=== PATIENT | female | born 1940 | race Caucasian/White ===

== ENCOUNTER 2016-06-22 18:59 | Inpatient (IN) | payer MEDICARE, BC, OTHER ==
[~2016-06-22] VITALS: Ht 157.5 cm; Wt 46.0 kg
[2016-06-22] MEDS: MORPHINE 2 MG/ML 1ML SYRINGE IV PRN ×4 (20:08→21:08)
[2016-06-22 21:22] LABS: BASO % 0.2 % (0.0-1.0); EOS % 0.4 % (0.0-3.0); LARGE UNSTAINED CELL # 0.1 K/mm3 (0.0-0.4); LARGE UNSTAINED CELL % 0.7 % (0.0-4.0); LYMPH # 1.3 K/mm3 (1.5-4.5); LYMPH % 13.6 % (24.0-44.0); MEAN CORPUSCULAR HEMOGLOBIN 28.6 pg (27.0-33.0); MEAN CORPUSCULAR HGB CONC 32.6 g/dl (32.0-36.5); MEAN CORPUSCULAR VOLUME 87.7 fl (80.0-96.0); MONO # 0.4 K/mm3 (0.0-0.8); MONO % 4.4 % (0.0-5.0); NEUTROPHILS # 7.7 K/mm3 (1.8-7.7); NEUTROPHILS % 80.7 % (36.0-66.0); PLATELET COUNT, AUTOMATED 240 k/mm3 (150-450); RED CELL DISTRIBUTION WIDTH 12.9 % (11.5-14.5); WHITE BLOOD COUNT 9.5 K/mm3 (4.0-10.0)
[2016-06-22 21:34] LABS: ANION GAP 9 MEQ/L (8-16); BLOOD UREA NITROGEN 14 MG/DL (7-18); CARBON DIOXIDE LEVEL 27 MEQ/L (21-32); CHLORIDE LEVEL 104 MEQ/L (98-107); CREATININE FOR GFR 0.63 MG/DL (0.55-1.02); GLOMERULAR FILTRATION RATE > 60.0 (>39); GLUCOSE, FASTING 113 MG/DL (83-110); POTASSIUM SERUM 3.6 MEQ/L (3.5-5.1); SODIUM LEVEL 140 MEQ/L (136-145)
[2016-06-22] MEDS ORDERED: CALCTAB7 PO (21:48)
[2016-06-22] MEDS ORDERED: FISH1000 PO (21:48)
[2016-06-22] MEDS ORDERED: VITMTA PO (21:48)
[2016-06-22] MEDS ORDERED: MORPHINE 2 MG/ML 1ML SYRINGE IV ONE (22:30)
[2016-06-22] MEDS ORDERED: BISACODYL 10 MG SUPP PR PRN (22:45)
[2016-06-22] MEDS ORDERED: ONDANSETRON 4MG/2ML VIAL (J2405) IV PRN (22:45)
[2016-06-22] MEDS ORDERED: D5W/0.9% SODIUM CHLORIDE 1,000 ML IV SCH (22:45)
[2016-06-23] VITALS (13 sets, daily range): BP systolic 121–156; BP diastolic 59–92
--- NOTE | 2016-06-23 | HPE ---
DATE OF ADMISSION: 06/22/2016 PRIMARY CARE PROVIDER: DARLENE Velazquez CHIEF COMPLAINT: Trip and fall with trauma to the left hip and left wrist. PAST MEDICAL HISTORY: Hyperlipidemia. HISTORY OF THE PRESENT ILLNESS: This is a 76-year-old female who was in her usual state of health, today in her house was going from kitchen to living room, there was a step in between which she forgot and tripped over and fell and injured her left hip and left wrist. The patient was brought to the emergency room. The patient was found to have a left hip fracture, so the patient is admitted to the hospitalist service for left hip fracture. PAST SURGICAL HISTORY: Left cataract surgery. Tonsillectomy. Left mastectomy in 1998 for breast cancer. ALLERGIES: No known allergies. SOCIAL HISTORY: Does not smoke. Does not abuse alcohol or recreational drugs. HOME MEDICATIONS: - calcium carbonate 600 mg by mouth daily - fish oil 1000 mg by mouth daily - multivitamins one tablet by mouth daily FAMILY HISTORY: Nothing significant. REVIEW OF SYSTEMS: All 10-point review of systems are negative except those mentioned in the history of the present illness. PHYSICAL EXAMINATION: Vital Signs: Temperature 98, pulse 84, respiratory rate 16, blood pressure 132/78, pulse oximetry 96% in room air. General: Patient awake, alert, oriented times three, laying in bed in no acute distress. HEENT: Normocephalic, atraumatic. Moist mucous membranes. Anicteric eyes. Chest: Clear to auscultation. Cardiovascular: S1, S2, regular. No rub, murmur or gallop. Abdomen: Soft, nontender. Bowel sounds present. Extremities: No edema. LABORATORY DATA: WBC 9.5, hemoglobin 13.5, platelets 240. Sodium 140, potassium 3.6, chloride 104, bicarbonate 27, BUN 14, creatinine 0.6, glucose 113, calcium 9. Cardiac enzymes are negative. Chest x-ray: No acute cardiopulmonary process. EKG: Sinus rhythm. ASSESSMENT AND PLAN: This is a 76-year-old female admitted for left hip fracture. Plan: Medical clearance. The patient has greater than 4 METS of physical capacity. EKGs and x-rays look okay. The patient is medically optimized for the proposed surgery. Left hip fracture. Dr. Whyte from orthopedics to see the patient. Will probably go to surgery within the next few hours. Pain control with morphine as needed. Will keep the patient nothing by mouth. Continue IV fluids for maintenance of hydration. Hyperlipidemia. The patient is on fish oil. Will continue that postoperatively. Deep vein thrombosis (DVT) prophylaxis has been ordered.
[2016-06-23] MEDS: MORPHINE 2 MG/ML 1ML SYRINGE IV PRN ×3 (03:55→08:16)
--- NOTE | 2016-06-23 04:30 | CR ---
DATE OF CONSULTATION: 06/22/2016 CHIEF COMPLAINT: Left hip fracture/pain. HISTORY: This is a 76-year-old female. She stumbled on a step and fell and injuring the left hip. The injury happened today. She complains of left hip pain and discomfort. Today incidentally is her birthday. Nursing summary is reviewed and remainder of chart. Patient has no medical issues. Does not take any medications on a daily basis. She is not allergic to medications. Does not smoke and has not been drinking. FAMILY HISTORY: She currently lives alone. She is surrounded by her family, however. REVIEW OF SYSTEMS: She is only complaining of left hip and extremity pain. CLINICAL EXAMINATION: Alert and cooperative. Mood and affect appropriate. Appears stated vintage of 76 or a bit younger. Healthy skin face, upper and lower extremities. Left lower extremity is warm and well-perfused with palpable dorsalis pedis pulses, regular about 80 beats per minute. No peripheral edema, soft calves. The extremity is shortened and internally rotated. Abdomen was soft and nontender. The patient is not short of breath. IMAGING: Comminuted intertrochanteric fracture of the left hip. IMPRESSION: Left hip intertrochanteric fracture. RECOMMENDATIONS: I talked to the patient about treatment options for this fracture. I would suggest metal fixation with hardware and to use a screw implant or nail. We completed a short-form history and physical (H and P), as well as consent document, which involved a lisa discussion of the procedure proposed, alternatives including doing nothing and risks including, but not limited to pain, infection, bleeding, blood loss, need for more surgery, blood clots and other issues. She agreed to proceed. I coordinated with the hospitalist, as well as the operating room (OR) scheduling. She is pending medical optimization, so we will plan on putting her on the OR schedule for tomorrow, 06/23/2016. The patient and family is comfortable with that plan. For further details, please refer to the medical record.
[2016-06-23] MEDS ORDERED: PERCOCET 5MG/325MG TAB PO PRN ×2 (07:00→07:15)
[2016-06-23] MEDS ORDERED: PROMETHAZINE INJ 25 MG/ML VIAL (J2550) IV PRN (07:15)
[2016-06-23] MEDS: SENOKOT S TAB PO SCH ×2 (08:11→20:12)
--- NOTE | 2016-06-23 08:41 | REP ---
Supine AP chest: 06/22/2016. Clinical history: Trauma. Comparison: 04/01/2007. Findings: The lung nowak are adequately inflated. There is no effusion or dense consolidation. There is apical pleural scarring, right greater than left. Prior mastectomy. Axillary clips on the left, stable. There is no parenchymal mass. Some minor linear fibrotic changes are seen. There is no cardiomegaly or gross edema. The aorta is mildly tortuous but normal for age. The bony thorax shows mild dextrorotatory curvature of the upper thoracic region. Impression: 1. No cardiomegaly, edema, definite effusion or dense consolidation. There was no widened mediastinum or other acute finding. 2. Prior mastectomy and left axillary lymph node dissection. Signed by Darren Nelson MD 06/23/2016 08:32 A
--- NOTE | 2016-06-23 08:52 | REP ---
LEFT WRIST COMPLETE: 06/22/2016. Clinical history: Trauma. Four views are provided. The bones are severely demineralized. There is advanced degenerative changes at the first CMC joint and other carpal articulations lesser degenerative changes. There is a subtle cortical step off on one of the oblique views at the distal radial metaphysis. This suggests a subtly impacted fracture on that view. I cannot confirm it on the other views however. There is soft tissue swelling dorsal aspect of the wrist and distal forearm. There is a dorsal tilt to the lunate and some cysts in the proximal capitate. No other significant finding. Impression: 1. Findings suggest a subtle impaction fracture of the distal radius may be present. Soft tissue swelling of the dorsal aspect of the wrist and distal forearm along with a dorsal tilt of the lunate suggesting a dorsal intercalated segment instability. 2. Osteoporosis and degenerative changes as described. Signed by Darren Nelson MD 06/23/2016 08:17 P
--- NOTE | 2016-06-23 08:53 | REP ---
AP PELVIS AND LEFT HIP: 06/22/2016. No prior study. AP pelvis shows pelvic ring intact. Pubic rami, symphysis pubis and acetabula intact. The right hip was unremarkable. SI joints, sacral ala and foramina intact. Degenerative facet changes lower lumbar spine. Left hip. There is an intertrochanteric fracture of the hip with slight varus deformity. There is no fracture of the femoral head or subtrochanteric femur. There are no other findings. Impression: 1. Intertrochanteric fracture of the left hip with only a two-part fracture and mild varus deformity. No other finding. Signed by Darren Nelson MD 06/23/2016 08:17 P
[2016-06-23] MEDS ORDERED: ceFAZolin 1GM INJ (J0690) As Ordered ONE (09:57)
[2016-06-23] MEDS ORDERED: BUPIVACAINE/EPIN 0.25% 30 ML VIAL As Ordered ONE (09:57)
[2016-06-23] MEDS ORDERED: PROPOFOL 200 MG/20 ML VIAL As Ordered ONE ×2 (10:23→11:23)
[2016-06-23] MEDS ORDERED: LIDOCAINE 2% INJ 100 MG/5 ML SDV (FOR ANES.) As Ordered ONE (10:23)
[2016-06-23] MEDS ORDERED: ROCURONIUM BROMIDE 50 MG/5 ML VIAL As Ordered ONE (10:23)
[2016-06-23] MEDS ORDERED: fentaNYL 100 MCG/2 ML INJECTION (J3010) As Ordered ONE ×3 (10:57→12:47)
[2016-06-23] MEDS ORDERED: GLYCOPYRROLATE INJ 0.2 MG/ML 2 ML VIAL As Ordered ONE (11:22)
[2016-06-23] MEDS ORDERED: NEOSTIGMINE 1MG/ML 5 ML SYRINGE (J2710) As Ordered ONE (11:22)
[2016-06-23] MEDS ORDERED: ONDANSETRON 4MG/2ML VIAL (J2405) As Ordered ONE ×2 (11:22→12:11)
[2016-06-23] MEDS ORDERED: fentaNYL 100 MCG/2 ML INJECTION (J3010) IV PRN (12:30)
[2016-06-23] MEDS ORDERED: ONDANSETRON 4MG/2ML VIAL (J2405) IV PRN (12:30)
[2016-06-23] MEDS ORDERED: METOCLOPRAMIDE INJ 10MG/2ML VIAL (J2765) As Ordered ONE (12:30)
[2016-06-23] MEDS: D5W/LR 1,000 ML IV SCH (12:30)
[2016-06-23] MEDS ORDERED: MORPHINE 2 MG/ML 1ML SYRINGE IV PRN (12:30)
[2016-06-23] MEDS ORDERED: LR 1,000 ML IV SCH (12:30)
[2016-06-23] MEDS ORDERED: METOCLOPRAMIDE INJ 10MG/2ML VIAL (J2765) IV PRN (12:45)
--- NOTE | 2016-06-23 13:58 | IPNPDOC ---
Subjective Date Seen The patient was seen on 06/23/16. Subjective Chief Complaint/HPI The patient is a 76-year-old female admitted with a reason for visit of Closed L Hip Fx. General: Denies: Chills, Night Sweats Constitutional: Denies: Chills, Fever Eyes: Denies: Pain, Vision change ENT: Denies: Ear Pain, Head Aches Skin: Denies: Lesions, Rash Pulmonary: Denies: Cough, Dyspnea Cardiovascular: Denies: Chest Pain, Palpitations Gastrointestinal: Denies: Nausea, Vomiting Genitourinary: Denies: Dysuria, Frequency Hematologic: Denies: Bleeding Excessively, Bruising Musculoskeletal: Reports: Leg Pain (Left Hip s/p Fracture) Objective Physical Examination General Exam: Positive: Alert, Cooperative, No Acute Distress ENT Exam: Positive: Atraumatic, Mucous membr. moist/pink Neck Exam: Negative: JVD Chest Exam: Positive: Clear to auscultation, Normal air movement Heart Exam: Positive: Normal S1, Normal S2, Rate Normal Abdomen Exam: Positive: Soft, Negative: Tenderness Extremity Exam: Positive: Other (Left Hip noted to be in surgical dressing s/p fixation. Limited ROM, no superficial drainage noted through dressing. Neurovascularly intact distally.) Assessment /Plan Plan/VTE VTE Prophylaxis Ordered?: Yes Plan Left Hip Intertrochanteric Fracture s/p Fixation Patient's pain relatively well controlled at this time Pain mgmt and DVT prophylaxis as per Ortho Nondisplaced Fracture of the Distal Radius of LUE Splint Placement as per Ortho DVT prophylaxis--On Coumadin as per Ortho VS, I&O, 24H, [facility] Vital Signs/I&O Vital Signs Date Time Temp Pulse Resp B/P Pulse Ox O2 Delivery O2 Flow Rate FiO2 06/23/16 13:00 98.8 74 18 116/59 99 Nasal Cannula 2 I&O- Last 24 Hours up to 6 AM 06/23/16 06:00 Intake Total 0 ml Output Total 0 ml Balance 0 ml Laboratory Data 24H LABS Laboratory Tests 2 06/22/16 20:06: Anion Gap 9, White Blood Count 9.5, Red Blood Count 4.71, Hemoglobin 13.5, Hematocrit 41.3, Mean Corpuscular Volume 87.7, Mean Corpuscular Hemoglobin 28.6 , Mean Corpuscular Hemoglobin Concent 32.6, Red Cell Distribution Width 12.9, Platelet Count 240, Neutrophils (%) (Auto) 80.7H, Lymphocytes (%) (Auto) 13.6L, Monocytes (%) (Auto) 4.4, Eosinophils (%) (Auto) 0.4, Basophils (%) (Auto) 0.2, Neutrophils # (Auto) 7.7, Lymphocytes # (Auto) 1.3L, Monocytes # (Auto) 0.4, Eosinophils # (Auto) 0.0, Basophils # (Auto) 0.0, Blood Urea Nitrogen 14, Creatinine 0.63, Sodium Level 140, Potassium Level 3.6, Chloride Level 104, Carbon Dioxide Level 27, Calcium Level 9.0, Total Creatine Kinase 138, Creatine Kinase MB 1.1, Creatine Kinase MB Relative Index 0.79, Glomerular Filtration Rate > 60.0, Large Unclassified Cells # 0.1, Large Unclassified Cells % 0.7, Troponin I < 0.02 CBC/BMP Laboratory Tests 06/22/16 20:06 Calcium Level 9.0, Total Creatine Kinase 138, Red Blood Count 4.71, Mean Corpuscular Volume 87.7, Mean Corpuscular Hemoglobin 28.6, Mean Corpuscular Hemoglobin Concent 32.6, Red Cell Distribution Width 12.9, Neutrophils (%) (Auto ) 80.7 H, Lymphocytes (%) (Auto) 13.6 L, Monocytes (%) (Auto) 4.4, Eosinophils ( %) (Auto) 0.4, Basophils (%) (Auto) 0.2, Neutrophils # (Auto) 7.7, Lymphocytes # (Auto) 1.3 L, Monocytes # (Auto) 0.4, Eosinophils # (Auto) 0.0, Basophils # ( Auto) 0.0 STELLA HUMPHREYS MD Jun 23, 2016 13:58
--- NOTE | 2016-06-23 14:26 | REP ---
LEFT HIP IN OPERATING ROOM: 06/23/2016. Clinical history: Intertrochanteric fracture ORIF. Four images from C-arm fluoroscopy provided to Dr. Whyte of the orthopedic division showed skin lisbeth and intramedullary sebas and a blade paddle device for ORIF intertrochanteric fracture of the left hip. A near anatomic alignment is achieved. The femoral blade paddle does not extend beyond the articular surface of the femoral head. Fluoroscopy time: 1 minute. Signed by Darren Nelson MD 06/23/2016 08:28 P
--- NOTE | 2016-06-23 15:41 | IPN ---
DATE OF SERVICE: 06/23/2016 SUBJECTIVE: I saw the patient prior to bringing her back to the operating room and talked to her again about surgical procedure and also her daughter. Also at this point, I had reviewed distal radius fracture/wrist images and I suspected a nondisplaced fracture of the distal radius on the left side. I examined her left upper extremity at the bedside and she seems to have developed some mild ecchymosis and swelling over the dorsal distal radius and hand, consistent with a nondisplaced fracture. Clinically there is no displacement. Fingers are warm and well-perfused, as well as sensate. IMPRESSION Nondisplaced fracture distal radius left upper extremity. She also has a hip fracture we are treating operatively RECOMMENDATIONS: I recommend treatment of the distal radius fracture with a splint. This was explained to the patient and her daughter who are comfortable with that plan and remain comfortable with the plan for fixing the hip operatively.
[2016-06-23] MEDS ORDERED: NALOXONE INJ 0.4 MG/1 ML VIAL (J2310) As Ordered ONE (15:45)
[2016-06-23] MEDS ORDERED: NALOXONE INJ 0.4 MG/1 ML VIAL (J2310) IV STA ×2 (15:47→17:04)
--- NOTE | 2016-06-23 16:11 | IPN ---
DATE: 06/23/2016 TIME: 3:54 p.m. SUBJECTIVE: Rapid assessment team was called due to patient being found unresponsive after two tablets of Percocet and one dose of intravenous (IV) Phenergan. The patient's glucose level was 156. She was not awakening with sternal rub. Pupils were equally round and reactive. After a dose of IV Narcan, the patient awoke, was able to state her name, where she was, and stated that she was in 8/10 pain on a pain scale. OBJECTIVE: VITAL SIGNS: Temperature 97.8, pulse 109 sinus, respiratory rate 25, blood pressure 156/73, 99% on two liters nasal cannula. GENERAL: Currently awake and alert. Answering questions appropriately after IV Narcan was given. HEENT: Pupils are round and reactive. Patient is able to follow commands, speaks in full sentences. No slurring of speech. No respiratory distress. LUNGS: Clear to auscultation. No wheezes, rales, or rhonchi. HEART: S1, S2. Sinus rhythm. ABDOMEN: Soft, nontender, nondistended. EXTREMITIES: Left hip with surgical dressings, status post fixation. No pitting edema. LABORATORY DATA: White count 9.5, hemoglobin 13, hematocrit 41, platelet count 240. Sodium 140, potassium 3.6, chloride 104, bicarbonate 27, BUN 14, creatinine 0.63, glucose of 113. Troponin less than 0.02. ASSESSMENT AND PLAN: A 76-year-old female with a mechanical fall, sustaining a left hip fracture and left wrist pain, history of tonsillectomy, left mastectomy due to breast cancer in 1998, left cataract surgery, developed altered mental status with unresponsiveness after being given two tablets of Percocet and one dose of intravenous Phenergan. The patient was reversed effectively with intravenous Narcan. morphine and Percocet were discontinued. Arterial blood gas is pending. The patient is clinically improved. IMPRESSION: Opioid-induced sedation, altered mental status. Glucose level is normal. Arterial blood gas is pending, but clinically improved with IV Narcan. The patient's Percocet and morphine were discontinued. Orthopedic surgery, Ely Russo, has been made aware of the rapid assessment and will adjust medications accordingly. Avoid further sedatives and narcotics. Vital signs are stable. No changes in her medication aside from discontinuation of opioids. Dr. Otilio Campbell is aware of the patient's rapid assessment team incident.
[2016-06-23 16:18] LABS: ABG BASE EXCESS 0.4 (-2.0-2.0); ABG PARTIAL PRESSURE CO2 40.2 mmHg (35.0-45.0); ABG PARTIAL PRESSURE O2 119.9 mmHg (75.0-100.0); ABG STANDARD HCO3 24.8 MEQ/L (22.0-26.0); ABG TOTAL CO2 26.2 MEQ/L (23.0-31.0); ABG pH (ARTERIAL) 7.411 UNITS (7.350-7.450)
[2016-06-23] MEDS ORDERED: WARFARIN SOD 2.5 MG TAB PO SCH (17:00)
[2016-06-23] MEDS ORDERED: NALOXONE INJ 0.4 MG/1 ML VIAL (J2310) IV PRN (17:15)
[2016-06-23] MEDS: ACETAMINOPHEN TAB 650MG DOSE (2X325MG) PO PRN (22:39)
[2016-06-24] VITALS: BP 108/61
[2016-06-24] MEDS: D5W/LR 1,000 ML IV SCH (00:47)
[2016-06-24 04:00] VITALS: BP 132/65
[2016-06-24] MEDS: ACETAMINOPHEN TAB 650MG DOSE (2X325MG) PO PRN ×3 (04:03→22:37)
[2016-06-24 05:59] LABS: MEAN CORPUSCULAR HEMOGLOBIN 28.7 pg (27.0-33.0); MEAN CORPUSCULAR HGB CONC 32.4 g/dl (32.0-36.5); MEAN CORPUSCULAR VOLUME 88.6 fl (80.0-96.0)
[2016-06-24 06:10] LABS: ANION GAP 4 MEQ/L (8-16); BLOOD UREA NITROGEN 6 MG/DL (7-18); CARBON DIOXIDE LEVEL 30 MEQ/L (21-32); CHLORIDE LEVEL 108 MEQ/L (98-107); CREATININE FOR GFR 0.49 MG/DL (0.55-1.02); GLOMERULAR FILTRATION RATE > 60.0 (>39); GLUCOSE, FASTING 99 MG/DL (83-110); POTASSIUM SERUM 3.6 MEQ/L (3.5-5.1); SODIUM LEVEL 142 MEQ/L (136-145)
[2016-06-24 07:15] VITALS: BP 120/58
--- NOTE | 2016-06-24 07:18 | RO ---
DATE OF PROCEDURE: date dictated PREOPERATIVE DIAGNOSES: 1. Left hip intertrochanteric fracture. 2. Nondisplaced traumatic distal radius fracture, left. POSTOPERATIVE DIAGNOSIS: 1. Left hip intertrochanteric fracture. 2. Nondisplaced traumatic distal radius fracture, left. PROCEDURE PERFORMED: Treatment of left hip intertrochanteric fracture with intramedullary type implant. Application of volar splint left upper extremity with distal radius fracture SURGEON: Abner Whyte MD [employer]ICIAN: ANESTHESIA: General. Estimated blood loss was less than 50 mL, replaced with crystalloid. No complications. Components used include the [employer] titanium trochanteric fixation nail system (TFN) nailing system and then a 5 mm blade, intermediate nail, 42 mm locking screw distal. INDICATIONS: Diya laureano, fractured her hip on the left side. Elected for operative intervention. She also has a nondisplaced fracture of the left distal radius looking for splinting. We had a discussion of the pathology involved, the procedures proposed, alternatives including doing nothing, risks including but not limited to pain, failure, , need for more surgery and other issues. The patient agrees to proceed. DESCRIPTION OF PROCEDURE: Identified in holding area, site side verified. Once anesthesia was administered, she was positioned on the fracture table for exposure of the left hip. Once she was sterilely prepped and draped in usual fashion, we began the surgery. We utilized fluoroscopy. The incision was outlined with a marking pen over the left hip. It was infiltrated with 0.25% Marcaine with epinephrine, made with a 10 blade knife, developed down through skin and subcuticular tissues to the abductor mechanism. I palpated the greater trochanter and then I advanced the guidewire in the guidewire side to the greater trochanter. Next, the guidewire was advanced under power into the femoral canals. Position was verified on AP and lateral. Next, I overdrilled the guidewire with step drill. I exchanged the guidewire for the long guidewire and I placed the intramedullary portion of the implant into place. Next, I then assembled the guide arm for the nail, made a lateral incision for the cephalic portion of the nail and advanced the guide to the lateral aspect of the femur. Advanced the guidewire using power into the femoral head. Verified its position and adjusted on AP and lateral films. Measured for a 95 mm blade, which was elected, overdrilled. Then, we tamped the blade into place, adjusted position fluoroscopically. Blade blocked in a dynamic positioned. Distal locking screw was placed using the guide. 42 mm distal x 5 mm distal locking screw utilized. Wounds were irrigated, closed with interrupted stitch and lisbeth. Sterile dressings were applied. Final fluoroscopic images were taken. The patient was moved the hospital bed, moved to recovery in good condition. For further details, please refer to medical record. [facility]
[2016-06-24] MEDS ORDERED: traMADol 50 MG TAB PO PRN (07:45)
--- NOTE | 2016-06-24 08:04 | REP ---
AP PORTABLE CHEST: 06/23/2016. Comparison: 06/22/2016 portable chest, two-view chest 04/01/2007. Clinical history: Decreased mental status. Findings: The lung nowak are over penetrated. They maintain adequate level of inflation. There is some minor subsegmental atelectasis or fibrotic change retrocardiac left lower lobe. No effusion, lateral pleural thickening or definite infiltrate. Apical pleural scarring, right greater than left is again seen. Prior mastectomy on the left with axillary surgical clips noted. Bones are demineralized. Dextroconvex curve in the spine. No free air under the diaphragm. Slight tortuosity of the aorta without aneurysm. No cardiomegaly or edema. Impression: 1. Some underlying COPD and mild fibrotic change without cardiomegaly, edema or effusion. 2. Apical pleuroparenchymal scarring. Some minor linear fibrotic change or atelectasis infrahilar region on the left. 3. Prior left mastectomy and axillary lymph node dissection as before with osteoporosis. Stable exam. Signed by Darren Nelson MD 06/24/2016 08:37 A
--- NOTE | 2016-06-24 08:58 | RO ---
DATE OF PROCEDURE: 06/23/2016 PREOPERATIVE DIAGNOSIS: Left upper extremity distal radius fracture. POSTPROCEDURE DIAGNOSIS: Left upper extremity distal radius fracture. PROCEDURE PERFORMED: Application of volar splint/treatment of distal radius fracture left upper extremity not requiring manipulation with a volar splint. SURGEON: Abner Whyte MD ANESTHESIA: Dr. De Anda ESTIMATED BLOOD LOSS: None. COMPLICATIONS: None. INDICATIONS: Nondisplaced fracture of distal radius traumatic after a fall. DESCRIPTION OF PROCEDURE: The left upper extremity was identified. I padded using cotton padding. I placed a volar splint, thicknesses of plaster. It was secured with an Devon wrap. The patient tolerated well and went to the recovery room in good condition. Incidentally, we had already pinned her hip.
[2016-06-24] MEDS: MIRALAX *UNIT DOSE* 17GM PACKET PO SCH (09:00)
[2016-06-24] MEDS ORDERED: INFLUENZA VIRUS VACCINE HIGH DOSE 0.5 ML SYRINGE (90662) IM SCH (09:00)
--- NOTE | 2016-06-24 09:11 | REP ---
AP LATERAL LEFT HIP: 06/24/2016. Comparison: Intraoperative C-arm images left hip for ORIF, 06/23/2016. Clinical history: Postoperative ORIF left hip. Intertrochanteric fracture. Findings. ORIF with near anatomic realignment of the intertrochanteric fracture left hip. Blade paddle component of the repair extends into the femoral head but does not extend beyond its articular cortex. A single screw transfixes the long stem intramedullary sebas type femoral component. No other finding. Signed by Darren Nelson MD 06/24/2016 10:50 A
[2016-06-24] MEDS: SENOKOT S TAB PO SCH ×2 (09:46→20:18)
[2016-06-24] MEDS: MOM 30ML SUSPENSION UDC PO SCH (09:46)
[2016-06-24 10:18] LABS: INR 1.15
--- NOTE | 2016-06-24 11:55 | IPNPDOC ---
Subjective Date Seen The patient was seen on 06/24/16. Subjective Chief Complaint/HPI The patient is a 76-year-old female admitted with a reason for visit of Closed L Hip Fx. General: Denies: Chills, Night Sweats Constitutional: Denies: Chills, Fever Eyes: Denies: Pain, Vision change ENT: Denies: Ear Pain, Head Aches Skin: Denies: Lesions, Rash Pulmonary: Denies: Cough, Dyspnea Cardiovascular: Denies: Chest Pain, Palpitations Gastrointestinal: Denies: Nausea, Vomiting Genitourinary: Denies: Dysuria, Frequency Hematologic: Denies: Bleeding Excessively, Bruising Objective Physical Examination General Exam: Positive: Alert, Cooperative, No Acute Distress ENT Exam: Positive: Atraumatic, Mucous membr. moist/pink Neck Exam: Negative: JVD Chest Exam: Positive: Clear to auscultation, Normal air movement Heart Exam: Positive: Normal S1, Normal S2, Rate Normal Abdomen Exam: Positive: Soft, Negative: Tenderness Extremity Exam: Positive: Other (Left Hip noted to be in surgical dressing s/p fixation. Limited ROM, no superficial drainage noted through dressing. LUE noted to be in Splint. Neurovascularly intact distally.) Assessment /Plan Plan/VTE VTE Prophylaxis Ordered?: Yes Plan Episode of Unresponsiveness 2/2 Narcotic Pain Medication on 06/23 s/p Narcan 0.4 mg x 2 Follow up ABG wnl Patient's mentation has returned back to baseline Will withhold narcotics Tramadol prn Further pain medication control as per Ortho Left Hip Intertrochanteric Fracture s/p Fixation Patient's pain relatively well controlled at this time Pain mgmt and DVT prophylaxis as per Ortho Nondisplaced Fracture of the Distal Radius of LUE Splint Placement as per Ortho DVT prophylaxis--On Coumad[facility] as per [facility] VS, [facility] V[facility] Signs/I&O Vital Signs Date Time Temp Pulse Resp B/P Pulse Ox O2 Delivery O2 Flow Rate FiO2 06/24/16 08:27 18 06/24/16 07:15 97.6 96 120/58 100 Nasal Cannula 2.0 I&O- Last 24 Hours up to 6 AM 06/24/16 06:00 Intake Total 1820 ml Output Total 1775 ml Balance 45 ml Laboratory Data 24H LABS Laboratory Tests 2 06/23/16 15:49: Bedside Glucose (Misc Panel) 153H 06/23/16 16:06: Arterial Blood pH 7.411, Arterial Blood Partial Pressure CO2 40.2, Arterial Blood Partial Pressure O2 119.9H, Arterial Blood Total CO2 26.2, Arterial Blood HCO3 25.0, Arterial Blood Base Excess 0.4, Arterial Blood Oxygen Saturation 98.8 , Blood Gas Bicarbonate Standard 24.8 06/24/16 05:03: Anion Gap 4L, Blood Urea Nitrogen 6#L, Creatinine 0.49L, Sodium Level 142, Potassium Level 3.6, Chloride Level 108H, Carbon Dioxide Level 30, Calcium Level 8.0L, Glomerular Filtration Rate > 60.0 06/24/16 09:46: Prothromb Time International Ratio 1.15, Prothrombin Time 14.8H CBC/BMP Laboratory Tests 06/24/16 05:03 Calcium Level 8.0 L, Red Blood Count 3.68 L, Mean Corpuscular Volume 88.6, Mean Corpuscular Hemoglobin 28.7, Mean Corpuscular Hemoglobin Concent 32.4, Red Cell Distribution Width 13.0 STELLA HUMPHREYS MD Jun 24, 2016 11:55
[2016-06-24 13:35] VITALS: BP 128/67
[2016-06-24] MEDS: traMADol 50 MG TAB PO PRN ×2 (15:00→22:37)
[2016-06-24] MEDS ORDERED: WARFARIN SOD 3 MG TAB PO ONE (17:00)
--- NOTE | 2016-06-24 20:40 | ECGEPIP ---
Stationary ECG Study [facility] - ED Test Date: 2016-06-22 Pat Name: JOSE ALEJANDRO PHAN Department: Room: [place] [address] Gender: F Relay Technician: phylicia : [id number] Requested By: JOHNATHAN Crawford Order Number: [id number] Reading MD: Stephany Fermin Measurements Intervals [place] Rate: 80 P: 71 CA: 128 QRS: 69 QRSD: 101 T: 68 QT: 394 QTc: 456 Interpretive Statements SINUS RHYTHM MODERATE ST DEPRESSION NO PRIOR FOR COMPARISON Electronically Signed On 06-24-2016 20:40:09 EDT by Stephany Fermin
[2016-06-25 02:00] VITALS: BP 127/64
[2016-06-25 06:00] VITALS: BP 121/58
[2016-06-25] MEDS: traMADol 50 MG TAB PO PRN ×2 (06:24→10:48)
[2016-06-25] MEDS: ACETAMINOPHEN TAB 650MG DOSE (2X325MG) PO PRN ×2 (06:24→10:48)
[2016-06-25 06:54] LABS: MEAN CORPUSCULAR HEMOGLOBIN 28.9 pg (27.0-33.0); MEAN CORPUSCULAR HGB CONC 33.1 g/dl (32.0-36.5); MEAN CORPUSCULAR VOLUME 87.4 fl (80.0-96.0); RED CELL DISTRIBUTION WIDTH 12.9 % (11.5-14.5); WHITE BLOOD COUNT 6.5 K/mm3 (4.0-10.0)
[2016-06-25 06:58] LABS: INR 1.03
[2016-06-25 07:03] LABS: ANION GAP 7 MEQ/L (8-16); BLOOD UREA NITROGEN 7 MG/DL (7-18); CALCIUM LEVEL 8.4 MG/DL (8.8-10.2); CARBON DIOXIDE LEVEL 29 MEQ/L (21-32); CHLORIDE LEVEL 104 MEQ/L (98-107); CREATININE FOR GFR 0.45 MG/DL (0.55-1.02); GLOMERULAR FILTRATION RATE > 60.0 (>39); GLUCOSE, FASTING 94 MG/DL (83-110); POTASSIUM SERUM 3.7 MEQ/L (3.5-5.1); SODIUM LEVEL 140 MEQ/L (136-145)
[2016-06-25] MEDS: MIRALAX *UNIT DOSE* 17GM PACKET PO SCH (10:46)
[2016-06-25] MEDS: MOM 30ML SUSPENSION UDC PO SCH (10:46)
[2016-06-25] MEDS: SENOKOT S TAB PO SCH (10:46)
--- NOTE | 2016-06-25 10:54 | IPNPDOC ---
Subjective Date Seen The patient was seen on 06/25/16. Subjective Chief Complaint/HPI The patient is a 76-year-old female admitted with a reason for visit of Closed L Hip Fx. General: Denies: Chills, Night Sweats Constitutional: Denies: Chills, Fever Eyes: Denies: Pain, Vision change ENT: Denies: Ear Pain, Head Aches Skin: Denies: Lesions, Rash Pulmonary: Denies: Cough, Dyspnea Cardiovascular: Denies: Chest Pain, Palpitations Gastrointestinal: Denies: Nausea, Vomiting Genitourinary: Denies: Dysuria, Frequency Hematologic: Denies: Bleeding Excessively, Bruising Objective Physical Examination General Exam: Positive: Alert, Cooperative, No Acute Distress ENT Exam: Positive: Atraumatic, Mucous membr. moist/pink Neck Exam: Negative: JVD Chest Exam: Positive: Clear to auscultation, Normal air movement Heart Exam: Positive: Normal S1, Normal S2, Rate Normal Abdomen Exam: Positive: Soft, Negative: Tenderness Extremity Exam: Positive: Other (Left Hip noted to be in surgical dressing s/p fixation. Limited ROM, no superficial drainage noted through dressing. LUE noted to be in Splint. Neurovascularly intact distally.) Assessment /Plan Plan/VTE VTE Prophylaxis Ordered?: Yes Plan Episode of Unresponsiveness 2/2 Narcotic Pain Medication on 06/23 s/p Narcan 0.4 mg x 2 Follow up ABG wnl Patient's mentation has returned back to baseline Will withhold narcotics Tramadol q6h prn Further pain medication control as per Ortho Left Hip Intertrochanteric Fracture s/p Fixation Patient's pain relatively well controlled at this time Pain mgmt and DVT prophylaxis as per Ortho Nondisplaced Fracture of the Distal Radius of LUE Splint Placement as per Ortho DVT prophylaxis--On Coumadin as per Ortho VS, I&O, [facility] Vital Signs/I&O Vital Signs Date Time Temp Pulse Resp B/P Pulse Ox O2 Delivery O2 Flow Rate FiO2 06/25/16 10:48 18 06/25/16 06:54 Room Air 06/25/16 06:00 98.4 89 121/58 97 06/24/16 07:15 2.0 I&O- Last 24 Hours up to 6 AM 06/25/16 05:59 Intake Total 920 ml Output Total 1150 ml Balance -230 ml Laboratory Data 24H LABS Laboratory Tests 2 06/25/16 06:21: Anion Gap 7L, Blood Urea Nitrogen 7, Creatinine 0.45L, Sodium Level 140, Potassium Level 3.7, Chloride Level 104, Carbon Dioxide Level 29, Calcium Level 8.4L, Glomerular Filtration Rate > 60.0, Prothromb Time International Ratio 1.03 , Prothrombin Time 13.6 CBC/BMP Laboratory Tests 06/25/16 06:21 Calcium Level 8.4 L, Red Blood Count 3.54 L, Mean Corpuscular Volume 87.4, Mean Corpuscular Hemoglobin 28.9, Mean Corpuscular Hemoglobin Concent 33.1, Red Cell Distribution Width 12.9 STELLA HUMPHREYS MD Jun 25, 2016 10:54
[2016-06-25 14:00] VITALS: BP 132/67
--- NOTE | 2016-06-25 15:52 | DS.PDOC ---
Discharge Summary General Date of Admission Jun 22, 2016 at 22:31 Date of Discharge 06/25/16 Specialist/Consultants Involve Dr. Abner Whyte of Orthopedic Surgery Discharge Summary PROCEDURES PERFORMED DURING STAY: Left Hip Intertrochanteric Fracture s/p Fixation ADMITTING DIAGNOSES: Left Hip Intertrochanteric Fracture s/p Fixation Nondisplaced Fracture of the Distal Radius of LUE Episode of Unresponsiveness 2/2 Narcotic Pain Medication on 06/23, resolved DISCHARGE DIAGNOSES: Left Hip Intertrochanteric Fracture s/p Fixation Nondisplaced Fracture of the Distal Radius of LUE Episode of Unresponsiveness 2/2 Narcotic Pain Medication on 06/23, resolved COMPLICATIONS/CHIEF COMPLAINT: Closed L Hip Fx. HISTORY OF PRESENT ILLNESS: . 76-year-old female with no significant past medical history presented to the hospital on 06/22 after she had a mechanical fall at home. The patient fell and injured her left hip and left wrist. In the ER, x-ray imaging of the left hip revealed an intertrochanteric fracture. In addition, an x-ray of the left upper extremity revealed a nondisplaced fracture of the distal radius. The hospitalist service was called to admit the patient. During the patient's hospital physician, she did have fixation of the left hip intratrochanteric fracture on 06/23. As for the patient's nondisplaced fracture of the distal radius of the left upper extremity, a splint was placed as per orthopedic surgery. Of note, the patient did have an episode of unresponsiveness on 06/23 after she received 2 tablets of Percocet for pain. The patient did receive Narcan and subsequently responded and returned back to her normal baseline mentation. A follow-up ABG revealed no CO2 retention. At this time, the patient is medically stable and ready for rehabilitation. She will be transferred to the rehabilitation unit for further physical optimization. DISCHARGE MEDICATIONS: Please see below. ALLERGIES: Please see below. PHYSICAL EXAMINATION ON DISCHARGE: VITAL SIGNS: Please see below. General Exam: Positive: Alert, Cooperative, No Acute Distress ENT Exam: Positive: Atraumatic, Mucous membr. moist/pink Neck Exam: Negative: JVD Chest Exam: Positive: Clear to auscultation, Normal air movement Heart Exam: Positive: Normal S1, Normal S2, Rate Normal Abdomen Exam: Positive: Soft, Negative: Tenderness Extremity Exam: Positive: Other (Left Hip noted to be in surgical dressing s/p fixation. Limited ROM, no superficial drainage noted through dressing. LUE noted to be in Splint. Neurovascularly intact distally.) LABORATORY DATA: Please see below. IMAGING: LEFT WRIST COMPLETE: 06/22/2016. Clinical history: Trauma. Four views are provided. The bones are severely demineralized. There is advanced degenerative changes at the first CMC joint and other carpal articulations lesser degenerative changes. There is a subtle cortical step off on one of the oblique views at the distal radial metaphysis. This suggests a subtly impacted fracture on that view. I cannot confirm it on the other views however. There is soft tissue swelling dorsal aspect of the wrist and distal forearm. There is a dorsal tilt to the lunate and some cysts in the proximal capitate. No other significant finding. Impression: 1. Findings suggest a subtle impaction fracture of the distal radius may be present. Soft tissue swelling of the dorsal aspect of the wrist and distal forearm along with a dorsal tilt of the lunate suggesting a dorsal intercalated segment instability. 2. Osteoporosis and degenerative changes as described. AP PELVIS AND LEFT HIP: 06/22/2016. No prior study. AP pelvis shows pelvic ring intact. Pubic rami, symphysis pubis and acetabula intact. The right hip was unremarkable. SI joints, sacral ala and foramina intact. Degenerative facet changes lower lumbar spine. Left hip. There is an intertrochanteric fracture of the hip with slight varus deformity. There is no fracture of the femoral head or subtrochanteric femur. There are no other findings. Impression: 1. Intertrochanteric fracture of the left hip with only a two-part fracture and mild varus deformity. No other finding. PROGNOSIS: Medically Stable ACTIVITY: As tolerated. DIET: .Regular Diet DISCHARGE PLAN: Rehab DISPOSITION: . DISCHARGE INSTRUCTIONS: 1. .F/U with PCP within 1-2 weeks 2. .F/U with Orthopedic Sx as indicated DISCHARGE CONDITION: Stable. TIME SPENT ON DISCHARGE: Greater than 30 minutes. Vital Signs/I&Os Vital Signs Date Time Temp Pulse Resp B/P Pulse Ox O2 Delivery O2 Flow Rate FiO2 06/25/16 11:18 18 06/25/16 06:54 Room Air 06/25/16 06:00 98.4 89 121/58 97 06/24/16 07:15 2.0 I&O- Last 24 Hours up to 6 AM 06/25/16 05:59 Intake Total 920 ml Output Total 1150 ml Balance -230 ml Laboratory Data Labs 24H Laboratory Tests 2 06/25/16 06:21: Anion Gap 7L, Blood Urea Nitrogen 7, Creatinine 0.45L, Sodium Level 140, Potassium Level 3.7, Chloride Level 104, Carbon Dioxide Level 29, Calcium Level 8.4L, Glomerular Filtration Rate > 60.0, Prothromb Time International Ratio 1.03 , Prothrombin Time 13.6 CBC/BMP Laboratory Tests 06/25/16 06:21 Calcium Level 8.4 L, Red Blood Count 3.54 L, Mean Corpuscular Volume 87.4, Mean Corpuscular Hemoglobin 28.9, Mean Corpuscular Hemoglobin Concent 33.1, Red Cell Distribution Width 12.9 Discharge Medications Scheduled Calcium Carbonate (Calcium 600) 600 Mg Tab 600 MG PO DAILY (Reported) Fish Oil (Fish Oil) 1,000 Mg Cap 1,000 MG PO DAILY (Reported) Multivitamins *[facility] STOCKED* (Thera M Plus *[facility] STOCKED*) 1 Tab Tab 1 TAB PO DAILY (Reported) Allergies Coded Allergies: No Known Allergies (Verified , 09/21/02) STELLA HUMPHREYS MD Jun 25, 2016 15:51
[2016-06-25] MEDS ORDERED: WARFARIN SOD 5 MG TAB PO ONE (17:00)
[2016-06-25] MEDS ORDERED: FISH1000 PO (17:44)
[2016-06-25] MEDS ORDERED: VITMTA PO (17:44)
[2016-06-25] MEDS ORDERED: CALC600T3 PO (17:44)
== END 2016-06-25 16:55 | DRG 481 ==
LOC: EDBD 18:59 → M ED 20:36 → M ED INP 22:31 → M MS5PR 06-23 00:17 → M PCU 06-23 18:38 → M MS5PR 06-24 13:20
PROVIDERS: ADMIT Internal Medicine Nephrology; ATTEND Internal Medicine
PROC: 0QS706Z Reposition Left Upper Femur with Intramedullary Internal Fixation Device, Open Approach (ICD-10-PCS; principal; 2016-06-23 09:00)
DX: S72.142A Displaced intertrochanteric fracture of left femur, initial encounter for closed fracture (principal); S52.502A Unspecified fracture of the lower end of left radius, initial encounter for closed fracture; E78.5 Hyperlipidemia, unspecified; T50.7X5A Adverse effect of analeptics and opioid receptor antagonists, initial encounter; W01.0XXA Fall on same level from slipping, tripping and stumbling without subsequent striking against object, initial encounter; Y92.010 Kitchen of single-family (private) house as the place of occurrence of the external cause; Y93.01 Activity, walking, marching and hiking; Z79.899 Other long term (current) drug therapy; Z85.3 Personal history of malignant neoplasm of breast; Z90.12 Acquired absence of left breast and nipple; Y99.9 Unspecified external cause status; R41.82 Altered mental status, unspecified

== ENCOUNTER 2016-06-25 15:13 | Inpatient (IN) | payer MEDICARE, BC, OTHER ==
[~2016-06-25] VITALS: Ht 157.5 cm; Wt 47.9 kg
[~2016-06-25 15:13] MED LIST: CALCTAB7 PO; FISH1000 PO; VITMTA PO
[2016-06-25] MEDS ORDERED: SENNA 8.6 MG TAB (SENOKOT) PO PRN (16:15)
[2016-06-25] MEDS ORDERED: MOM 30ML SUSPENSION UDC PO PRN (16:15)
[2016-06-25] MEDS ORDERED: WARFARIN SOD 5 MG TAB PO ONE (17:00)
[2016-06-25 17:10] VITALS: BP 180/81
[2016-06-25] MEDS ORDERED: FISH1000 PO (17:44)
[2016-06-25] MEDS ORDERED: CALC600T3 PO (17:44)
[2016-06-25] MEDS ORDERED: VITMTA PO (17:44)
[2016-06-25] MEDS: oxyCODONE 5MG TAB PO PRN (17:59)
[2016-06-25 18:41] VITALS: BP 126/66
[2016-06-25 20:00] VITALS: BP 126/66
[2016-06-25] MEDS: traMADol 50 MG TAB PO PRN (20:55)
--- NOTE | 2016-06-25 22:10 | PMRHPE ---
DATE OF ADMISSION: 06/25/2016 CHIEF COMPLAINT: Left hip fracture status post open reduction internal fixation (ORIF) on 06/24/2016 with right radial hairline fracture from fall on 06/22/2016. HISTORY OF PRESENT ILLNESS: Patient is a 76-year-old white female who lives alone at home and previously was independent in self-care and in good health. Patient tripped over a step between the kitchen and the living room, landing on her left hip and wrist. Patient was brought to the [facility] Emergency Room on 06/22/2016, the day of the fall, and was evaluated and found to have left radial fracture, but a closed left hip fracture that was comminuted and intertrochanteric. Yesterday, on 06/24/2016, patient had open reduction internal fixation of the hip. She tolerated the procedure well and consultation was sent to rehabilitation unit to assess for transfer, and patient was accepted for transfer for a course of physical and occupational therapy and rehabilitation nursing. PAST MEDICAL HISTORY: 1. Left cataract surgery. 2. Tonsillectomy. 3. Left mastoidectomy. ALLERGIES: Patient has no known allergies. SOCIAL HISTORY: Patient lives alone. Does not smoke. Does not use alcohol or recreational drugs. MEDICATIONS AT HOME: - calcium carbonate 600 mg daily - fish oil 1000 mg daily - multivitamin one per day FAMILY HISTORY: Negative for pertinent diseases. REVIEW OF SYSTEMS: Negative for general factors, HEENT, cardiac, pulmonary, abdominal, musculoskeletal with the exception of the current injuries, neurologic, psychological, and endocrine, as all of these were negative. PHYSICAL EXAMINATION: GENERAL: Patient is a short, small-framed, elderly white female, in mild musculoskeletal distress, favoring her left upper extremity, which is in a volar splint of the forearm, wrist and hand and a sling for positioning, as well as ecchymosis throughout the hand and wrist, as blackish in nature, and blue-black posterior hip ecchymosis with a posterior lateral incision site and dressing. VITAL SIGNS: Temperature 99.2, blood pressure 180/81, pulse 92, respirations 18 , pulse oximetry 96% on room air. HEENT: Normocephalic, atraumatic. Pupils equal, reactive to light and accommodation. Extraocular motions are intact. NECK: Supple. No palpable masses and no notable goiter was found. LUNGS: Clear in all nowak to auscultation. CORONARY: Regular rate and rhythm with normal S1, S2 and 2/4 radial pulses. ABDOMEN: Mildly scaphoid with bowel sounds present in all quadrants. No palpable tenderness. Right upper and lower extremities with normal functional range of motion and good to full strength. Left upper and lower extremity not tested tonight. Light touch and vibration intact in bilateral upper and lower extremities. Memory is good. Speech is clear. Affect is pleasant and cooperative. Patient is in fairly good mood, though she seems a bit tired today. LABORATORY/X-RAY DATA: Patient with a mild to moderate anemia that appears stable and good positioning and placement of the internal fixation. ADMITTING DIAGNOSES: 1. Rehabilitation of left comminuted hip fracture status post open reduction internal fixation with weightbearing restrictions of less than 20 pounds to the left and patient restricted in her ability to support weight through her left upper extremity due to the distal radial fracture. Patient will need 10-14 days. Estimated length of stay to become modified independent to independent in activities of daily living (ADLs) and mobility to handle the seven steps in and out of the house and for home mobility, self care, hygiene, dressing, and food preparation, as to not be able to put much load through her left wrist and hand are probably about 5-6 weeks and will be on weightbearing restrictions for longer than that. Also, patient with posterior hip precautions at this time, as the capsule heals on the left hip. 2. Left radial fracture. As noted above. 3. Hypertension. Patient currently elevated this evening; however, was running their blood pressures during transfer. Will need to observe this. Consultation to the hospitalist group has been made and medications can be adjusted if blood pressures remain elevated, as well as adjustments to her current analgesics of tramadol and oxycodone, to better control her pain. 4. Atherosclerotic cardiovascular disease. No changes at this time. 5. Deep venous thrombosis (DVT) prophylaxis. Patient is on Coumadin and will increase it to 5 mg tonight and check INR in the morning. POST ADMISSION PHYSICIAN EVALUATION: Patient overall previously fairly healthy and independent 76-year-old lady who was independent in her activities of daily living (ADLs) prior to her fall, with a hip and wrist fracture on the left. Will need to learn adaptive mobility and ADLs to return home and should be a good candidate if she is cognitively clear and shows no barriers to learning. I do feel the patient is able to participate and benefit from the rehabilitation, as noted above. I also feel the patient is able to participate in the three hours per therapy per day and anticipate discharge to home in 10-14 days. I feel her prognosis is good, with the estimated length of stay 10-14 days. Time spent on chart review, history and physical and documentation and orders has been greater than 70 minutes. ZACARIAS
[2016-06-26] MEDS: oxyCODONE 5MG TAB PO PRN ×3 (00:31→21:08)
[2016-06-26] MEDS: traMADol 50 MG TAB PO PRN ×2 (05:26→18:31)
[2016-06-26 06:00] VITALS: BP 153/73
[2016-06-26 08:27] LABS: BASO % 0.2 % (0.0-1.0); EOS # 0.1 K/mm3 (0.0-0.50); LARGE UNSTAINED CELL # 0.1 K/mm3 (0.0-0.4); LARGE UNSTAINED CELL % 0.9 % (0.0-4.0); LYMPH % 16.3 % (24.0-44.0); MEAN CORPUSCULAR HEMOGLOBIN 28.4 pg (27.0-33.0); MEAN CORPUSCULAR HGB CONC 32.5 g/dl (32.0-36.5); MEAN CORPUSCULAR VOLUME 87.5 fl (80.0-96.0); MONO # 0.3 K/mm3 (0.0-0.8); NEUTROPHILS # 4.6 K/mm3 (1.8-7.7); NEUTROPHILS % 75.6 % (36.0-66.0); PLATELET COUNT, AUTOMATED 244 k/mm3 (150-450)
[2016-06-26 08:35] LABS: INR 1.26
[2016-06-26 08:48] LABS: ALBUMIN 2.4 GM/DL (3.2-5.2); ALBUMIN/GLOBULIN RATIO 0.63 (1.00-1.93); ALKALINE PHOSPHATASE 62 U/L (45-117); ALT/SGPT 16 U/L (12-78); ANION GAP 8 MEQ/L (8-16); AST/SGOT 14 U/L (15-37); BILIRUBIN,TOTAL 0.5 MG/DL (0.2-1.0); BLOOD UREA NITROGEN 9 MG/DL (7-18); CALCIUM LEVEL 8.3 MG/DL (8.8-10.2); CARBON DIOXIDE LEVEL 30 MEQ/L (21-32); CHLORIDE LEVEL 100 MEQ/L (98-107); CREATININE FOR GFR 0.59 MG/DL (0.55-1.02); GLOMERULAR FILTRATION RATE > 60.0 (>39); GLUCOSE, FASTING 162 MG/DL (83-110); POTASSIUM SERUM 3.7 MEQ/L (3.5-5.1); SODIUM LEVEL 138 MEQ/L (136-145); TOTAL PROTEIN 6.2 GM/DL (6.4-8.2)
[2016-06-26] MEDS: OMEGA-3 1050MG CAPSULE PO SCH (09:41)
[2016-06-26] MEDS: MULTIVITAMINS/MINERALS THERAP 1 TAB PO SCH (09:41)
[2016-06-26] MEDS: MIRALAX *UNIT DOSE* 17GM PACKET PO SCH (09:41)
--- NOTE | 2016-06-26 12:44 | IPNPDOC ---
Clinical Field Specialist Progress Note DATE OF SERVICE: 06/26/2016 DATE OF ADMISSION: Jun 25, 2016 at 17:00 INPATIENT REHABILITATION ADMISSION DAY: #1 SUBJECTIVE: Patient is a 76-year-old white female with left hip fracture status post ORIF and distal left radial fracture nondisplaced. Patient continues to have pain with activity but overall reports the pain medicines are working fairly well. She denies any fevers or chills and has no other complaints. ALLERGIES: See Below MEDICATIONS: Reviewed, see below. OBJECTIVE: VITAL SIGNS: Please see below. PHYSICAL EXAMINATION: GENERAL: Thin elderly white female, who is alert and oriented 4, speech is clear coherent and appropriate, affect is pleasant and cooperative. Patient appears to be in mild musculoskeletal distress left forearm in a volar splint. Patient also guarding of left hip. HEENT: Normocephalic atraumatic. CARDIOVASCULAR: Regular rate and rhythm with normal S1-S2 without S3-S4 murmurs or rubs. LUNGS: All nowak clear to auscultation. ABDOMEN: Flat, bowel sounds present in all quadrants, nontender to palpation. NEUROLOGICAL: As noted above. SKIN: Ecchymoses continue in left hand and hip. Otherwise skin within normal limits for age. LABORATORY DATA: Reviewed. Please see below. MICROBIOLOGY: Please see below. IMAGING: No new. DVT prophylaxis ordered?: Patient on Coumadin INR still subtherapeutic, Mrs. Dunbar of Orthopedics will be managing dosing. Consult sent. ASSESSMENT AND PLAN: 1. Rehabilitation of left hip fracture with open reduction internal fixation along with left distal radius fracture: Patient proceeding with initial physical and occupational therapy evaluations today. Adjustment of pain medications will be made to facilitate therapy. Patient may wear of her therapy schedule and requesting medications and timely fashion to have optimal effects during therapy from the medications. 2. Anemia: Hemoglobin 10.3 with hematocrit 31.6 today this is trending up. We will continue to monitor during patient's admission. 3. Diabetes: stable. TIME SPENT: Chart Review, examination and documentation greater than 25 minutes. Allergies Coded Allergies: No Known Allergies (Verified , 09/21/02) Vital Signs Vital Signs Date Time Temp Pulse Resp B/P Pulse Ox O2 Delivery O2 Flow Rate FiO2 06/26/16 06:00 97.9 106 22 153/73 95 Room Air Laboratory Data CBC/BMP Laboratory Tests 06/26/16 08:11 Calcium Level 8.3 L, Aspartate Amino Transf (AST/SGOT) 14 L, Alanine Aminotransferase (ALT/SGPT) 16, Alkaline Phosphatase 62, Total Bilirubin 0.5, Total Protein 6.2 L, Albumin 2.4 L, Red Blood Count 3.61 L, Mean Corpuscular Volume 87.5, Mean Corpuscular Hemoglobin 28.4, Mean Corpuscular Hemoglobin Concent 32.5, Red Cell Distribution Width 13.0, Neutrophils (%) (Auto) 75.6 H, Lymphocytes (%) (Auto) 16.3 L, Monocytes (%) (Auto) 5.0, Eosinophils (%) (Auto) 2.0, Basophils (%) (Auto) 0.2, Neutrophils # (Auto) 4.6, Lymphocytes # (Auto) 1.0 L, Monocytes # (Auto) 0.3, Eosinophils # (Auto) 0.1, Basophils # (Auto) 0.0 Labs 24H Laboratory Tests 2 06/25/16 19:25: Urine Amorphous Sediment , Urine Appearance CLEAR, Urine Color YELLOW, Urine pH 6.0, Urine Specific [place] 1.012, Urine Protein NEGATIVE, Urine Glucose (UA) NEGATIVE, Urine Ketones 1+H, Urine Urobilinogen 0.2, Urine Bilirubin NEGATIVE, Urine Leukocyte Esterase NEGATIVE, Urine Bacteria (Auto) NEGATIVE, Urine Blood 1 +H, Urine Calcium Carbonate Cryst(Auto) , Urine Calcium Oxalate Cryst (Auto) , Urine Calcium Phosphate Ofe (Auto) , Urine Cellular Casts , Urine Cystine Crystals , Urine Granular Casts (Auto) , Urine Hyaline Casts (Auto) 0, Urine Leucine Crystals , Urine Mucus (Auto) SMALL, Urine Nitrite NEGATIVE, Urine Oval Fat Bodies (Auto) , Urine RBC (Auto) 4H, Urine Renal Epithelial Cells , Urine Sperm (Auto) , Urine Squamous Epithelial Cells 0, Urine Transitional Epithelial Cells , Urine Trichomonas (Auto) , Urine Triple Phosphate Cryst (Auto) , Urine Tyrosine Crystals , Urine Uric Acid Crystals (Auto) , Urine WBC (Auto) 4H, Urine Waxy Casts (Auto) , Urine Yeast-Like Cells (Auto) 06/26/16 08:11: Blood Urea Nitrogen 9, Creatinine 0.59, Sodium Level 138, Potassium Level 3.7, Chloride Level 100, Carbon Dioxide Level 30, Calcium Level 8.3L, Aspartate Amino Transf (AST/SGOT) 14L, Alanine Aminotransferase (ALT/SGPT) 16, Alkaline Phosphatase 62, Total Bilirubin 0.5, Total Protein 6.2L, Albumin 2.4L, Albumin/ Globulin Ratio 0.63L, Anion Gap 8, White Blood Count 6.0, Red Blood Count 3.61L , Hemoglobin 10.3L, Hematocrit 31.6L, Mean Corpuscular Volume 87.5, Mean Corpuscular Hemoglobin 28.4, Mean Corpuscular Hemoglobin Concent 32.5, Red Cell Distribution Width 13.0, Platelet Count 244, Neutrophils (%) (Auto) 75.6H, Lymphocytes (%) (Auto) 16.3L, Monocytes (%) (Auto) 5.0, Eosinophils (%) (Auto) 2.0, Basophils (%) (Auto) 0.2, Neutrophils # (Auto) 4.6, Lymphocytes # (Auto) 1.0L, Monocytes # (Auto) 0.3, Eosinophils # (Auto) 0.1, Basophils # (Auto) 0.0, Glomerular Filtration Rate > 60.0, Large Unclassified Cells # 0.1, Large Unclassified Cells % 0.9, Prothromb Time International Ratio 1.26, Prothrombin Time 15.9H Microbiology Microbiology 06/25/16 Urine Culture, Received Pending Current Medications Current Medications Current Medications Fish Oil (Steward-3 (1050mg)) 1 ea DAILY PO Last administered on 06/26/16 09:41 ; Start 06/26/16 at 09:00; Stop 07/26/16 at 08:59 Home Med (Med Rec Complete!) ASDIRECTED XX ; Start 06/25/16 at 18:00; Stop 01/01 at 18:00; Status DC Magnesium Hydroxide (Milk Of Magnesia) 30 ml DAILYPRN PRN PO CONSTIPATION; Start 06/25/16 at 16:15; Stop 07/25/16 at 16:14 Multivitamins (Theragram-M) 1 tab DAILY PO Last administered on 06/26/16 09:41 ; Start 06/26/16 at 09:00; Stop 07/26/16 at 08:59 Oxycodone HCl (Roxicodone, Oxyir) 5 mg Q6HP PRN PO PAIN SCALE 6-10 Last administered on 06/26/16 00:31; Start 06/25/16 at 16:15; Stop 07/02/16 at 10:00 Polyethylene Glycol (Miralax) 1 pkt DAILY PO Last administered on 06/26/16 09: 41; Start 06/26/16 at 09:00; Stop 07/26/16 at 08:59 Senna (Senokot) 1 tab Q12HP PRN PO CONSTIPATION; Start 06/25/16 at 16:15; Stop 07/25/16 at 16:14 Tramadol HCl (Ultram) 50 mg Q6HP PRN PO MODERATE PAIN (PS 5-7) Last administered on 06/26/16 05:26; Start 06/25/16 at 16:15; Stop 07/02/16 at 16:14 NEYDA KEANE MD Jun 26, 2016 12:44
--- NOTE | 2016-06-26 13:01 | IPNPDOC ---
Subjective Date Seen The patient was seen on 06/26/16. Subjective Chief Complaint/HPI The patient is a 76-year-old female admitted with a reason for visit of Lt Hip Fx. Assessment /Plan Problems (1) Closed left hip fracture Status: Acute Problem Text: * S/P ORIF as per Ortho * Rehab as per ARU. * Coumadin as per Ortho * Pain control. * Bowel care (2) Left radial fracture Status: Acute Problem Text: * splint as per Ortho. (3) Hyperlipidemia Status: Chronic Problem Text: * Pt takes Fish oil (4) Fall Status: Acute Problem Text: * s/p mechanical fall. Plan/VTE VTE Prophylaxis Ordered?: Yes (Coumadin as per [place]) VS, I&O, 24H, Fishbone Vital Signs/I&O Vital Signs Date Time Temp Pulse Resp B/P Pulse Ox O2 Delivery O2 Flow Rate FiO2 06/26/16 06:00 97.9 106 22 153/73 95 Room Air I&O- Last 24 Hours up to 6 AM 06/26/16 05:59 Intake Total 500 ml Output Total 800 ml Balance -300 ml Laboratory Data 24H LABS Laboratory Tests 2 06/25/16 19:25: Urine Amorphous Sediment , Urine Appearance CLEAR, Urine Color YELLOW, Urine pH 6.0, Urine Specific [place] 1.012, Urine Protein NEGATIVE, Urine Glucose (UA) NEGATIVE, Urine Ketones 1+H, Urine Urobilinogen 0.2, Urine Bilirubin NEGATIVE, Urine Leukocyte Esterase NEGATIVE, Urine Bacteria (Auto) NEGATIVE, Urine Blood 1 +H, Urine Calcium Carbonate Cryst(Auto) , Urine Calcium Oxalate Cryst (Auto) , Urine Calcium Phosphate Ofe (Auto) , Urine Cellular Casts , Urine Cystine Crystals , Urine Granular Casts (Auto) , Urine Hyaline Casts (Auto) 0, Urine Leucine Crystals , Urine Mucus (Auto) SMALL, Urine Nitrite NEGATIVE, Urine Oval Fat Bodies (Auto) , Urine RBC (Auto) 4H, Urine Renal Epithelial Cells , Urine Sperm (Auto) , Urine Squamous Epithelial Cells 0, Urine Transitional Epithelial Cells , Urine Trichomonas (Auto) , Urine Triple Phosphate Cryst (Auto) , Urine Tyrosine Crystals , Urine Uric Acid Crystals (Auto) , Urine WBC (Auto) 4H, Urine Waxy Casts (Auto) , Urine Yeast-Like Cells (Auto) 06/26/16 08:11: Blood Urea Nitrogen 9, Creatinine 0.59, Sodium Level 138, Potassium Level 3.7, Chloride Level 100, Carbon Dioxide Level 30, Calcium Level 8.3L, Aspartate Amino Transf (AST/SGOT) 14L, Alanine Aminotransferase (ALT/SGPT) 16, Alkaline Phosphatase 62, Total Bilirubin 0.5, Total Protein 6.2L, Albumin 2.4L, Albumin/ Globulin Ratio 0.63L, Anion Gap 8, White Blood Count 6.0, Red Blood Count 3.61L , Hemoglobin 10.3L, Hematocrit 31.6L, Mean Corpuscular Volume 87.5, Mean Corpuscular Hemoglobin 28.4, Mean Corpuscular Hemoglobin Concent 32.5, Red Cell Distribution Width 13.0, Platelet Count 244, Neutrophils (%) (Auto) 75.6H, Lymphocytes (%) (Auto) 16.3L, Monocytes (%) (Auto) 5.0, Eosinophils (%) (Auto) 2.0, Basophils (%) (Auto) 0.2, Neutrophils # (Auto) 4.6, Lymphocytes # (Auto) 1.0L, Monocytes # (Auto) 0.3, Eosinophils # (Auto) 0.1, Basophils # (Auto) 0.0, Glomerular Filtration Rate > 60.0, Large Unclassified Cells # 0.1, Large Unclassified Cells % 0.9, Prothromb Time International Ratio 1.26, Prothrombin Time 15.9H CBC/BMP Laboratory Tests 06/26/16 08:11 Calcium Level 8.3 L, Aspartate Amino Transf (AST/SGOT) 14 L, Alanine Aminotransferase (ALT/SGPT) 16, Alkaline Phosphatase 62, Total Bilirubin 0.5, Total Protein 6.2 L, Albumin 2.4 L, Red Blood Count 3.61 L, Mean Corpuscular Volume 87.5, Mean Corpuscular Hemoglobin 28.4, Mean Corpuscular Hemoglobin Concent 32.5, Red Cell Distribution Width 13.0, Neutrophils (%) (Auto) 75.6 H, Lymphocytes (%) (Auto) 16.3 L, Monocytes (%) (Auto) 5.0, Eosinophils (%) (Auto) 2.0, Basophils (%) (Auto) 0.2, Neutrophils # (Auto) 4.6, Lymphocytes # (Auto) 1.0 L, Monocytes # (Auto) 0.3, Eosinophils # (Auto) 0.1, Basophils # (Auto) 0.0 Microbiology Microbiology 06/25/16 Urine Culture, Received Pending Julia Owens Jun 26, 2016 13:00
[2016-06-26 14:45] VITALS: BP 144/76
[2016-06-26] MEDS ORDERED: WARFARIN SOD 7.5 MG TAB PO ONE (17:00)
[2016-06-26 20:00] VITALS: BP 134/71
[2016-06-27] MEDS ORDERED: traMADol 50 MG TAB As Ordered ONE ×2 (01:38→12:55)
[2016-06-27] MEDS: traMADol 50 MG TAB PO PRN ×3 (01:44→22:27)
[2016-06-27 06:00] VITALS: BP 132/67
[2016-06-27 07:06] LABS: INR 1.49
[2016-06-27] MEDS: oxyCODONE 5MG TAB PO PRN ×2 (07:29→17:49)
[2016-06-27] MEDS: MULTIVITAMINS/MINERALS THERAP 1 TAB PO SCH (08:28)
[2016-06-27] MEDS: OMEGA-3 1050MG CAPSULE PO SCH (08:28)
[2016-06-27] MEDS: MIRALAX *UNIT DOSE* 17GM PACKET PO SCH (08:28)
--- NOTE | 2016-06-27 09:08 | IPNPDOC ---
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 Patient reports feeling good this morning without problems and having good pain control on her current medications. ALLERGIES: See Below MEDICATIONS: Reviewed, see below. OBJECTIVE: VITAL SIGNS: Please see below. PHYSICAL EXAMINATION: GENERAL: Short thin elderly white female in no acute distress, working with OT on ADLs. Patient is alert and oriented 4. HEENT: Normocephalic atraumatic. CARDIOVASCULAR: Regular rate and rhythm with normal S1 and S2. 2 out 4 radial pulse on the right. LUNGS: All nowak clear to auscultation. ABDOMEN: Flat, bowel sounds present in all quadrants, no tenderness. NEUROLOGICAL: Sensorimotor intact in bilateral upper and lower extremities. SKIN: Continue improvement of ecchymosis left hand and wrist. LABORATORY DATA: Reviewed. Please see below. MICROBIOLOGY: Please see below. IMAGING: No new. DVT prophylaxis ordered?: Patient continues on Coumadin INR today is 1.49. Orthopedics to adjust dosage as appropriate. ASSESSMENT AND PLAN: 1. Rehabilitation of left hip fracture with ORIF: Patient really would good pain control participating well in therapy and following weightbearing restrictions. Hopefully Advance mobility today in physical therapy. 2. Left distal radial fracture: Doing well with splint and adapting in ADLs such as grooming which was observed and OT this morning. 3. Anemia is stable. TIME SPENT: Chart Review, examination and documentation greater and 25 minutes. Allergies Coded Allergies: No Known Allergies (Verified , 09/21/02) Vital Signs Vital Signs Date Time Temp Pulse Resp B/P Pulse Ox O2 Delivery O2 Flow Rate FiO2 06/27/16 08:26 16 06/27/16 06:00 98.1 96 132/67 97 Room Air Laboratory Data Labs 24H Laboratory Tests 2 06/27/16 06:30: Prothromb Time International Ratio 1.49, Prothrombin Time 18.1H Microbiology Microbiology 06/25/16 Urine Culture - Final, Complete Current Medications Current Medications Current Medications Fish Oil ([place]-3 (1050mg)) 1 ea DAILY PO Last administered on 06/27/16t 08:28 ; Start 06/26/16 at 09:00; Stop 07/26/16 at 08:59 Home Med (Med Rec Complete!) ASDIRECTED XX ; Start 06/25/16 at 18:00; Stop 01/01 at 18:00; Status DC Magnesium Hydroxide (Milk Of Magnesia) 30 ml DAILYPRN PRN PO CONSTIPATION; Start 06/25/16 at 16:15; Stop 07/25/16 at 16:14 Multivitamins (Theragram-M) 1 tab DAILY PO Last administered on 06/27/16 08:28 ; Start 06/26/16 at 09:00; Stop 07/26/16 at 08:59 Oxycodone HCl (Roxicodone, Oxyir) 5 mg Q6HP PRN PO PAIN SCALE 6-10 Last administered on 06/27/16 07:29; Start 06/25/16 at 16:15; Stop 07/02/16 at 10:00 Polyethylene Glycol (Miralax) 1 pkt DAILY PO Last administered on 06/26/16 09: 41; Start 06/26/16 at 09:00; Stop 07/26/16 at 08:59 Senna (Senokot) 1 tab Q12HP PRN PO CONSTIPATION; Start 06/25/16 at 16:15; Stop 07/25/16 at 16:14 Tramadol HCl (Ultram) 50 mg Q6HP PRN PO MODERATE PAIN (PS 5-7) Last administered on 06/27/16 01:44; Start 06/25/16 at 16:15; Stop 07/02/16 at 16:14 NEYDA KEANE MD Jun 27, 2016 09:08
--- NOTE | 2016-06-27 13:58 | IPNPDOC ---
Subjective Date Seen The patient was seen on 06/27/16. Subjective Chief Complaint/HPI The patient is a 76-year-old female admitted with a reason for visit of Lt Hip Fx. Events since last encounter pt is OOB. Family in room. States she is feeling well. No complaints. Objective Physical Examination General Exam: Positive: Alert Eye Exam: Positive: PERRLA ENT Exam: Positive: Atraumatic Neck Exam: Positive: Supple Chest Exam: Positive: Clear to auscultation Heart Exam: Positive: Normal S1, Normal S2, Rate Normal, Regular Rhythm, Negative: Murmurs, Rubs Skin Exam: Positive: Nl turgor and temperature Assessment /Plan Problems (1) Closed left hip fracture Status: Acute Problem Text: * S/P ORIF as per Ortho * Rehab as per ARU. * Coumadin as per Ortho * Pain control. * Bowel care (2) Left radial fracture Status: Acute Problem Text: * splint as per Ortho. (3) Hyperlipidemia Status: Chronic Problem Text: * Pt takes Fish oil (4) Fall Status: Acute Problem Text: * s/p mechanical fall. Plan/VTE VTE Prophylaxis Ordered?: Yes VS, I&O, 24H, Fishbone Vital Signs/I&O Vital Signs Date Time Temp Pulse Resp B/P Pulse Ox O2 Delivery O2 Flow Rate FiO2 06/27/16 12:58 18 06/27/16 06:00 98.1 96 132/67 97 Room Air I&O- Last 24 Hours up to 6 AM 06/27/16 06:00 Intake Total 1440 ml Output Total 1350 ml Balance 90 ml Laboratory Data 24H LABS Laboratory Tests 2 06/27/16 06:30: Prothromb Time International Ratio 1.49, Prothrombin Time 18.1H Microbiology Microbiology 06/25/16 Urine Culture - Final, Complete Julia Owens Jun 27, 2016 13:58
[2016-06-27 14:00] VITALS: BP 128/64
[2016-06-27] MEDS ORDERED: WARFARIN SOD 5 MG TAB PO ONE (17:00)
[2016-06-27 20:00] VITALS: BP 131/67
[2016-06-28] MEDS: oxyCODONE 5MG TAB PO PRN ×2 (01:23→14:49)
[2016-06-28 06:00] VITALS: BP 146/71
[2016-06-28 07:25] LABS: INR 1.79
[2016-06-28] MEDS: MIRALAX *UNIT DOSE* 17GM PACKET PO SCH (08:12)
[2016-06-28] MEDS: MULTIVITAMINS/MINERALS THERAP 1 TAB PO SCH (08:13)
[2016-06-28] MEDS: OMEGA-3 1050MG CAPSULE PO SCH (08:14)
--- NOTE | 2016-06-28 12:31 | IPNPDOC ---
Subjective Date Seen The patient was seen on 06/28/16. Subjective Chief Complaint/HPI The patient is a 76-year-old female admitted with a reason for visit of Lt Hip Fx. Events since last encounter Pt with no complaints. States pain controlled. OOB to chair. Eating lunch. Visitors at bedside. Objective Physical Examination General Exam: Positive: Alert Eye Exam: Positive: PERRLA ENT Exam: Positive: Atraumatic Neck Exam: Positive: Supple Chest Exam: Positive: Clear to auscultation Heart Exam: Positive: Normal S1, Normal S2, Rate Normal, Regular Rhythm, Negative: Murmurs, Rubs Extremity Exam: Negative: Edema, Tenderness Skin Exam: Positive: Nl turgor and temperature Assessment /Plan Problems (1) Closed left hip fracture Status: Acute Problem Text: * S/P ORIF as per Ortho * Rehab as per ARU. * Coumadin as per Ortho * Pain control. * Bowel care (2) Left radial fracture Status: Acute Problem Text: * splint as per Ortho. (3) Hyperlipidemia Status: Chronic Problem Text: * Pt takes Fish oil (4) Fall Status: Acute Problem Text: * s/p mechanical fall. (5) Anemia Status: Chronic Problem Text: * Most likely acute blood loss. * Update CBC Plan/VTE VTE Prophylaxis Ordered?: Yes Disposition as per ARU VS, I&O, 24H, [place] Vital Signs/I&O Vital Signs Date Time Temp Pulse Resp B/P Pulse Ox O2 Delivery O2 Flow Rate FiO2 06/28/16 06:00 98.2 94 18 146/71 96 Room Air I&O- Last 24 Hours up to 6 AM 06/28/16 06:00 Intake Total 1200 ml Output Total 1600 ml Balance -400 ml Laboratory Data 24H LABS Laboratory Tests 2 06/28/16 06:57: Prothromb Time International Ratio 1.79, Prothrombin Time 20.9H Microbiology Microbiology 06/25/16 Urine Culture - Final, Complete Julia Owens Jun 28, 2016 12:31
[2016-06-28 14:00] VITALS: BP 140/66
[2016-06-28] MEDS ORDERED: WARFARIN SOD 3 MG TAB PO ONE (17:00)
--- NOTE | 2016-06-28 17:18 | IPNPDOC ---
District Captain Progress Note DATE OF SERVICE: 06/28/2016 DATE OF ADMISSION: Jun 25, 2016 at 17:00 INPATIENT REHABILITATION ADMISSION DAY: #3 SUBJECTIVE: Patient is a 76-year-old white female with left hip fracture and distal radial fracture status post ORIF left hip. Patient reports fairly good pain control though increased with activity and endurance more of a problem for trying to ambulate on just one leg with the walker. ALLERGIES: See Below MEDICATIONS: Reviewed, see below. OBJECTIVE: VITAL SIGNS: Please see below. PHYSICAL EXAMINATION: GENERAL: Short thin elderly white female in mild musculoskeletal distress who is alert and oriented 4, speech is clear coherent and appropriate, affect is pleasant and cooperative. Motor shows 4+ to 5 out of 5 strength in upper extremities except for left loading inspector and 5 out of 5 right lower extremity. HEENT: Normocephalic/atraumatic. CARDIOVASCULAR: Regular rate and rhythm with normal S1 and S2 and to L4 radial pulse in the right upper extremity. LUNGS: All nowak clear to auscultation. ABDOMEN: Flat benign with normal bowel sounds. NEUROLOGICAL: As above SKIN: Notable decrease in ecchymoses and and hip LABORATORY DATA: Reviewed. Please see below. MICROBIOLOGY: Please see below. IMAGING: No new DVT prophylaxis ordered?: Coumadin management by orthopedics ASSESSMENT AND PLAN: 1. Rehabilitation of left hip fracture: Patient limited in gaining endurance to about 20 feet at time with the rolling front wheeled walker and left upper extremity platform but overall progressing with this. Estimated length of stay is 10 days. 2. Anemia stable. 3. DVT prophylaxis: Steady rise and INR but still subtherapeutic. FIM: MR# Initials Goal Date=> [id number] 06/25/2016 06/28/2016 Self-Care Eating 7 5 5 [place] 7 4 7 Bath 6 1 4 Dress U 7 1 5 Dress L 6 1 4 Toilet 6 1 4 Spincther Bladder 6 1 5 Bowel 6 5 5 Transfers B/C/Wc 6 1 4 Toilet 6 1 4 Shower 6 0 0 Locomot. W/WC 6 0 1 Stairs 6 0 0 Compre 7 5 6 Express 7 5 6 Social Int. 7 5 6 Prob. Loly. 7 5 5 Memory 7 5 5 Total 116 46 76 TIME SPENT: Chart Review, examination and documentation including team conference greater in 35 minutes. Allergies Coded Allergies: No Known Allergies (Verified , 09/21/02) Vital Signs Vital Signs Date Time Temp Pulse Resp B/P Pulse Ox O2 Delivery O2 Flow Rate FiO2 06/28/16 15:20 18 Room Air 06/28/16 14:00 99.3 110 140/66 98 Laboratory Data Labs 24H Laboratory Tests 2 06/28/16 06:57: Prothromb Time International Ratio 1.79, Prothrombin Time 20.9H Microbiology Microbiology 06/25/16 Urine Culture - Final, Complete Current Medications Current Medications Current Medications Fish Oil ([place]-3 (1050mg)) 1 ea DAILY PO Last administered on 06/28/16 08:14 ; Start 06/26/16 at 09:00; Stop 07/26/16 at 08:59 Home Med (Med Rec Complete!) ASDIRECTED XX ; Start 06/25/16 at 18:00; Stop 01/01 at 18:00; Status DC Magnesium Hydroxide (Milk Of Magnesia) 30 ml DAILYPRN PRN PO CONSTIPATION; Start 06/25/16 at 16:15; Stop 07/25/16 at 16:14 Multivitamins (Theragram-M) 1 tab DAILY PO Last administered on 06/28/16 08:13 ; Start 06/26/16 at 09:00; Stop 07/26/16 at 08:59 Oxycodone HCl (Roxicodone, Oxyir) 5 mg Q6HP PRN PO PAIN SCALE 6-10 Last administered on 06/28/16 14:49; Start 06/25/16 at 16:15; Stop 07/02/16 at 10:00 Polyethylene Glycol (Miralax) 1 pkt DAILY PO Last administered on 06/28/16 08: 12; Start 06/26/16 at 09:00; Stop 07/26/16 at 08:59 Senna (Senokot) 1 tab Q12HP PRN PO CONSTIPATION; Start 06/25/16 at 16:15; Stop 07/25/16 at 16:14 Tramadol HCl (Ultram) 50 mg Q6HP PRN PO MODERATE PAIN (PS 5-7) Last administered on 06/27/16 22:27; Start 06/25/16 at 16:15; Stop 07/02/16 at 16:14 NEYDA KEANE MD Jun 28, 2016 17:18
[2016-06-28 20:00] VITALS: BP 144/69
[2016-06-28] MEDS ORDERED: ACETAMINOPHEN TAB 650MG DOSE (2X325MG) PO ONE (21:00)
[2016-06-28 21:54] LABS: BASO % 0.2 % (0.0-1.0); EOS # 0.1 K/mm3 (0.0-0.50); EOS % 2.2 % (0.0-3.0); LARGE UNSTAINED CELL # 0.2 K/mm3 (0.0-0.4); LARGE UNSTAINED CELL % 2.3 % (0.0-4.0); LYMPH # 1.6 K/mm3 (1.5-4.5); LYMPH % 23.4 % (24.0-44.0); MEAN CORPUSCULAR HEMOGLOBIN 28.1 pg (27.0-33.0); MEAN CORPUSCULAR HGB CONC 32.5 g/dl (32.0-36.5); MEAN CORPUSCULAR VOLUME 86.4 fl (80.0-96.0); MONO # 0.6 K/mm3 (0.0-0.8); MONO % 9.1 % (0.0-5.0); NEUTROPHILS % 62.9 % (36.0-66.0); PLATELET COUNT, AUTOMATED 355 k/mm3 (150-450); RED CELL DISTRIBUTION WIDTH 13.1 % (11.5-14.5); WHITE BLOOD COUNT 6.4 K/mm3 (4.0-10.0)
[2016-06-28 22:02] LABS: ANION GAP 7 MEQ/L (8-16); BLOOD UREA NITROGEN 11 MG/DL (7-18); CALCIUM LEVEL 8.8 MG/DL (8.8-10.2); CARBON DIOXIDE LEVEL 29 MEQ/L (21-32); CHLORIDE LEVEL 103 MEQ/L (98-107); CREATININE FOR GFR 0.57 MG/DL (0.55-1.02); GLOMERULAR FILTRATION RATE > 60.0 (>39); GLUCOSE, FASTING 121 MG/DL (83-110); POTASSIUM SERUM 4.2 MEQ/L (3.5-5.1); SODIUM LEVEL 139 MEQ/L (136-145)
--- NOTE | 2016-06-28 22:50 | REPUSA ---
Clinical history: Pain, swelling. Findings: The common femoral, superficial femoral, popliteal, and other deep venous structures compre ss normally and demonstrate normal color Doppler flow. Normal venous waveforms with augmentation are seen. Impression: No evidence of deep vein thrombosis in either femoral popliteal venous system.
[2016-06-29 05:54] VITALS: BP 119/62
[2016-06-29] MEDS: traMADol 50 MG TAB PO PRN ×4 (06:13→22:57)
[2016-06-29 07:05] LABS: MEAN CORPUSCULAR HEMOGLOBIN 28.4 pg (27.0-33.0); MEAN CORPUSCULAR HGB CONC 32.6 g/dl (32.0-36.5); MEAN CORPUSCULAR VOLUME 87.1 fl (80.0-96.0); RED CELL DISTRIBUTION WIDTH 13.2 % (11.5-14.5); WHITE BLOOD COUNT 4.3 K/mm3 (4.0-10.0)
[2016-06-29 07:19] LABS: INR 2.27
--- NOTE | 2016-06-29 08:54 | REP ---
Chest x-ray: Two views. History: Evaluate for infiltrate. Postoperative fever. Findings: The lungs are hyperinflated but free of infiltrate. Pleural angles are sharp. Heart is not enlarged. The patient is status post left mastectomy with clips in the left axilla. There is diffuse osteopenia. No bony destructive lesion is seen. Impression: Hyperinflation. Status post left mastectomy. No acute disease. Signed by Marcin Arguelles MD 06/29/2016 11:22 A
[2016-06-29] MEDS: MIRALAX *UNIT DOSE* 17GM PACKET PO SCH (09:00)
[2016-06-29] MEDS: OMEGA-3 1050MG CAPSULE PO SCH (09:00)
[2016-06-29] MEDS: MULTIVITAMINS/MINERALS THERAP 1 TAB PO SCH (09:00)
--- NOTE | 2016-06-29 11:04 | IPNPDOC ---
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 Patient reports overall being able ambulate further having decrease pain and discomfort though she is bothered by the edge of her splint being into her arm when she flexes the elbow. Patient reports no fever or chills though a little bit nauseous today. ALLERGIES: See Below MEDICATIONS: Reviewed, see below. OBJECTIVE: VITAL SIGNS: Please see below. PHYSICAL EXAMINATION: GENERAL: Pleasant alert elderly white female who is oriented 4. Patient and very mild musculoskeletal distress and in good spirits. Patient showing good left upper extremity mobility. HEENT: Normocephalic/atraumatic. CARDIOVASCULAR: Regular rate and rhythm with normal S1 and S2 in 2 out of 4 radial pulse on RUE. Good perfusion and left nailbeds. LUNGS: All nowak clear to auscultation good air movement. ABDOMEN: Flat, bowel sounds are present in all quadrants. NEUROLOGICAL: Sensorimotor intact with guarding of the left hip and wrist. SKIN: Continued improvement in skin discoloration from the fractures and bleeding. Hip wound healing well. LABORATORY DATA: Reviewed. Please see below. MICROBIOLOGY: Please see below. IMAGING: No new. DVT prophylaxis ordered?: Coumadin with therapeutic INR of 2.27 dosage being adjusted by orthopedics. ASSESSMENT AND PLAN: 1. Rehabilitation of left hip fracture: Doing well showing increased mobility and ADLs her walking distance while still fairly limited is increasing with each session in general. 2. Left distal radius fracture: We'll have nursing come in the cast padding and well supported watch the arm on daily basis now. I have trimmed back splint so it no longer is taking the patient in the biceps on flexion. 3. Anemia is essentially stable. TIME SPENT: Chart Review, examination and documentation greater than 25 minutes. Allergies Coded Allergies: No Known Allergies (Verified , 09/21/02) Vital Signs Vital Signs Date Time Temp Pulse Resp B/P Pulse Ox O2 Delivery O2 Flow Rate FiO2 06/29/16 06:43 18 06/29/16 05:54 98.9 90 119/62 95 Room Air Laboratory Data CBC/BMP Laboratory Tests 06/28/16 21:31 Calcium Level 8.8, Red Blood Count 3.66 L, Mean Corpuscular Volume 86.4, Mean Corpuscular Hemoglobin 28.1, Mean Corpuscular Hemoglobin Concent 32.5, Red Cell Distribution Width 13.1, Neutrophils (%) (Auto) 62.9, Lymphocytes (%) (Auto) 23.4 L, Monocytes (%) (Auto) 9.1 H, Eosinophils (%) (Auto) 2.2, Basophils (%) ( Auto) 0.2, Neutrophils # (Auto) 4.0, Lymphocytes # (Auto) 1.6, Monocytes # (Auto ) 0.6, Eosinophils # (Auto) 0.1, Basophils # (Auto) 0.0 06/29/16 06:43 Red Blood Count 3.57 L, Mean Corpuscular Volume 87.1, Mean Corpuscular Hemoglobin 28.4, Mean Corpuscular Hemoglobin Concent 32.6, Red Cell Distribution Width 13.2 Labs 24H Laboratory Tests 2 06/28/16 21:31: Anion Gap 7L, White Blood Count 6.4, Red Blood Count 3.66L, Hemoglobin 10.3L, Hematocrit 31.6L, Mean Corpuscular Volume 86.4, Mean Corpuscular Hemoglobin 28.1 , Mean Corpuscular Hemoglobin Concent 32.5, Red Cell Distribution Width 13.1, Platelet Count 355, Neutrophils (%) (Auto) 62.9, Lymphocytes (%) (Auto) 23.4L, Monocytes (%) (Auto) 9.1H, Eosinophils (%) (Auto) 2.2, Basophils (%) (Auto) 0.2 , Neutrophils # (Auto) 4.0, Lymphocytes # (Auto) 1.6, Monocytes # (Auto) 0.6, Eosinophils # (Auto) 0.1, Basophils # (Auto) 0.0, Blood Urea Nitrogen 11, Creatinine 0.57, Sodium Level 139, Potassium Level 4.2, Chloride Level 103, Carbon Dioxide Level 29, Calcium Level 8.8, Glomerular Filtration Rate > 60.0, Large Unclassified Cells # 0.2, Large Unclassified Cells % 2.3 06/28/16 21:54: Urine Amorphous Sediment , Urine Appearance CLEAR, Urine Color STRAW, Urine pH 8.0, Urine Specific [place] 1.004, Urine Protein NEGATIVE, Urine Glucose (UA) NEGATIVE, Urine Ketones NEGATIVE, Urine Urobilinogen 0.2, Urine Bilirubin NEGATIVE, Urine Leukocyte Esterase NEGATIVE, Urine Bacteria (Auto) NEGATIVE, Urine Blood 1+H, Urine Calcium Carbonate Cryst(Auto) , Urine Calcium Oxalate Cryst (Auto) , Urine Calcium Phosphate Ofe (Auto) , Urine Cellular Casts , Urine Cystine Crystals , Urine Granular Casts (Auto) , Urine Hyaline Casts (Auto ) 0, Urine Leucine Crystals , Urine Mucus (Auto) , Urine Nitrite NEGATIVE, Urine Oval Fat Bodies (Auto) , Urine RBC (Auto) 1, Urine Renal Epithelial Cells , Urine Sperm (Auto) , Urine Squamous Epithelial Cells 0, Urine Transitional Epithelial Cells , Urine Trichomonas (Auto) , Urine Triple Phosphate Cryst (Auto ) , Urine Tyrosine Crystals , Urine Uric Acid Crystals (Auto) , Urine WBC (Auto ) 0, Urine Waxy Casts (Auto) , Urine Yeast-Like Cells (Auto) 06/29/16 06:43: Prothromb Time International Ratio 2.27, Prothrombin Time 25.1H Microbiology Microbiology 06/28/16 Blood Culture, Received Pending 06/28/16 Blood Culture, Received Pending 06/25/16 Urine Culture - Final, Complete Current Medications Current Medications Current Medications Fish Oil ([place]-3 (1050mg)) 1 ea DAILY PO Last administered on 06/28/16 08:14 ; Start 06/26/16 at 09:00; Stop 07/26/16 at 08:59 Home Med (Med Rec Complete!) ASDIRECTED XX ; Start 06/25/16 at 18:00; Stop 01/01 at 18:00; Status DC Magnesium Hydroxide (Milk Of Magnesia) 30 ml DAILYPRN PRN PO CONSTIPATION; Start 06/25/16 at 16:15; Stop 07/25/16 at 16:14 Multivitamins (Theragram-M) 1 tab DAILY PO Last administered on 06/28/16 08:13 ; Start 06/26/16 at 09:00; Stop 07/26/16 at 08:59 Oxycodone HCl (Roxicodone, Oxyir) 5 mg Q6HP PRN PO PAIN SCALE 6-10 Last administered on 06/28/16 14:49; Start 06/25/16 at 16:15; Stop 07/02/16 at 10:00 Polyethylene Glycol (Miralax) 1 pkt DAILY PO Last administered on 06/28/16 08: 12; Start 06/26/16 at 09:00; Stop 07/26/16 at 08:59 Senna (Senokot) 1 tab Q12HP PRN PO CONSTIPATION; Start 06/25/16 at 16:15; Stop 07/25/16 at 16:14 Tramadol HCl (Ultram) 50 mg Q6HP PRN PO MODERATE PAIN (PS 5-7) Last administered on 06/29/16 06:13; Start 06/25/16 at 16:15; Stop 07/02/16 at 16:14 NEYDA KEANE MD Jun 29, 2016 11:04
--- NOTE | 2016-06-29 12:07 | IPNPDOC ---
Subjective Date Seen The patient was seen on 06/29/16. Subjective Chief Complaint/HPI The patient is a 76-year-old female admitted with a reason for visit of Lt Hip Fx. Events since last encounter Patient states she had some mild nausea today but otherwise no abdominal pain. No other complaints. No shortness of breath, chest pain, abdominal pain. No vomiting. No dysuria, frequency or urgency. No cough, rhinorrhea, sore throat. She feels somewhat tired but otherwise no concerns. She has been drinking plenty of fluids. Constitutional: Reports: Fever (MAXIMUM TEMPERATURE last evening was 100.8 at 1999) ENT: Denies: Dysphagia, Ear Pain, Head Aches Skin: Denies: Breakdown, Lesions, Rash Pulmonary: Denies: Cough, Dyspnea Cardiovascular: Denies: Chest Pain, Lt Headedness, Orthopnea, Palpitations, Paroxysmal Noc. Dyspnea Gastrointestinal: Reports: Nausea, Denies: Abdominal Pain, Constipation, Diarrhea, Vomiting Genitourinary: Denies: Dysuria, Frequency, Incontinence, Retention Objective Physical Examination General Exam: Positive: Alert Eye Exam: Positive: Conjunctiva & lids normal, PERRLA ENT Exam: Positive: Atraumatic, Mucous membr. moist/pink Neck Exam: Positive: Supple Chest Exam: Positive: Clear to auscultation, Normal air movement Heart Exam: Positive: Normal S1, Normal S2, Rate Normal, Regular Rhythm, Negative: Murmurs, Rubs Extremity Exam: Negative: Edema, Tenderness Skin Exam: Positive: Nl turgor and temperature Assessment /Plan Problems (1) Closed left hip fracture Status: Acute Problem Text: * S/P ORIF as per Ortho * Rehab as per ARU. * Coumadin as per Ortho * Pain control. * Bowel care (2) Left radial fracture Status: Acute Problem Text: * splint as per Ortho. (3) Hyperlipidemia Status: Chronic Problem Text: * Pt takes Fish oil (4) Fall Status: Acute Problem Text: * s/p mechanical fall. (5) Anemia Status: Chronic Problem Text: * Possibly acute blood loss. * Update CBC in a.m. * Add iron studies, B12, and folate. Stool OB. (6) Fever Status: Acute Problem Text: * Patient was noted to have elevated temperature 06/29 1999 of 100.8 * Patient has been afebrile since that time * Chest x-ray NAD * Culture 2 pending * Lower extremity ultrasound negative * UA unremarkable * CBC this a.m. with no leukocytosis. * Incentive spirometry requested. * Monitor. * Recheck labs in a.m. Plan/VTE VTE Prophylaxis Ordered?: Yes VS, I&O, 24H, Fishbone Vital Signs/I&O Vital Signs Date Time Temp Pulse Resp B/P Pulse Ox O2 Delivery O2 Flow Rate FiO2 06/29/16 06:43 18 06/29/16 05:54 98.9 90 119/62 95 Room Air I&O- Last 24 Hours up to 6 AM 06/29/16 06:00 Intake Total 1040 ml Output Total 600 ml Balance 440 ml Laboratory Data 24H LABS Laboratory Tests 2 06/28/16 21:31: Anion Gap 7L, White Blood Count 6.4, Red Blood Count 3.66L, Hemoglobin 10.3L, Hematocrit 31.6L, Mean Corpuscular Volume 86.4, Mean Corpuscular Hemoglobin 28.1 , Mean Corpuscular Hemoglobin Concent 32.5, Red Cell Distribution Width 13.1, Platelet Count 355, Neutrophils (%) (Auto) 62.9, Lymphocytes (%) (Auto) 23.4L, Monocytes (%) (Auto) 9.1H, Eosinophils (%) (Auto) 2.2, Basophils (%) (Auto) 0.2 , Neutrophils # (Auto) 4.0, Lymphocytes # (Auto) 1.6, Monocytes # (Auto) 0.6, Eosinophils # (Auto) 0.1, Basophils # (Auto) 0.0, Blood Urea Nitrogen 11, Creatinine 0.57, Sodium Level 139, Potassium Level 4.2, Chloride Level 103, Carbon Dioxide Level 29, Calcium Level 8.8, Glomerular Filtration Rate > 60.0, Large Unclassified Cells # 0.2, Large Unclassified Cells % 2.3 06/28/16 21:54: Urine Amorphous Sediment , Urine Appearance CLEAR, Urine Color STRAW, Urine pH 8.0, Urine Specific [place] 1.004, Urine Protein NEGATIVE, Urine Glucose (UA) NEGATIVE, Urine Ketones NEGATIVE, Urine Urobilinogen 0.2, Urine Bilirubin NEGATIVE, Urine Leukocyte Esterase NEGATIVE, Urine Bacteria (Auto) NEGATIVE, Urine Blood 1+H, Urine Calcium Carbonate Cryst(Auto) , Urine Calcium Oxalate Cryst (Auto) , Urine Calcium Phosphate Ofe (Auto) , Urine Cellular Casts , Urine Cystine Crystals , Urine Granular Casts (Auto) , Urine Hyaline Casts (Auto ) 0, Urine Leucine Crystals , Urine Mucus (Auto) , Urine Nitrite NEGATIVE, Urine Oval Fat Bodies (Auto) , Urine RBC (Auto) 1, Urine Renal Epithelial Cells , Urine Sperm (Auto) , Urine Squamous Epithelial Cells 0, Urine Transitional Epithelial Cells , Urine Trichomonas (Auto) , Urine Triple Phosphate Cryst (Auto ) , Urine Tyrosine Crystals , Urine Uric Acid Crystals (Auto) , Urine WBC (Auto ) 0, Urine Waxy Casts (Auto) , Urine Yeast-Like Cells (Auto) 06/29/16 06:43: Prothromb Time International Ratio 2.27, Prothrombin Time 25.1H CBC/BMP Laboratory Tests 06/28/16 21:31 Calcium Level 8.8, Red Blood Count 3.66 L, Mean Corpuscular Volume 86.4, Mean Corpuscular Hemoglobin 28.1, Mean Corpuscular Hemoglobin Concent 32.5, Red Cell Distribution Width 13.1, Neutrophils (%) (Auto) 62.9, Lymphocytes (%) (Auto) 23.4 L, Monocytes (%) (Auto) 9.1 H, Eosinophils (%) (Auto) 2.2, Basophils (%) ( Auto) 0.2, Neutrophils # (Auto) 4.0, Lymphocytes # (Auto) 1.6, Monocytes # (Auto ) 0.6, Eosinophils # (Auto) 0.1, Basophils # (Auto) 0.0 06/29/16 06:43 Red Blood Count 3.57 L, Mean Corpuscular Volume 87.1, Mean Corpuscular Hemoglobin 28.4, Mean Corpuscular Hemoglobin Concent 32.6, Red Cell Distribution Width 13.2 Microbiology Microbiology 06/28/16 Blood Culture, Received Pending 06/28/16 Blood Culture, Received Pending 06/25/16 Urine Culture - Final, Complete Julia Owens Jun 29, 2016 12:07
[2016-06-29 12:53] LABS: PERCENT SATURATION 15.7 % (13.2-37.4)
[2016-06-29 12:55] LABS: FOLATE 18.1 NG/ML
[2016-06-29 14:00] VITALS: BP 127/66
[2016-06-29 22:00] VITALS: BP 130/72
[2016-06-30 06:00] VITALS: BP 130/72
[2016-06-30] MEDS: traMADol 50 MG TAB PO PRN ×3 (06:43→22:32)
[2016-06-30 07:21] LABS: MEAN CORPUSCULAR HEMOGLOBIN 28.5 pg (27.0-33.0); MEAN CORPUSCULAR HGB CONC 32.4 g/dl (32.0-36.5); MEAN CORPUSCULAR VOLUME 87.9 fl (80.0-96.0); RED CELL DISTRIBUTION WIDTH 13.3 % (11.5-14.5); WHITE BLOOD COUNT 4.3 K/mm3 (4.0-10.0)
[2016-06-30 07:32] LABS: ANION GAP 7 MEQ/L (8-16); BLOOD UREA NITROGEN 10 MG/DL (7-18); CALCIUM LEVEL 8.6 MG/DL (8.8-10.2); CARBON DIOXIDE LEVEL 29 MEQ/L (21-32); CHLORIDE LEVEL 104 MEQ/L (98-107); GLOMERULAR FILTRATION RATE > 60.0 (>39); GLUCOSE, FASTING 99 MG/DL (83-110); POTASSIUM SERUM 4.2 MEQ/L (3.5-5.1); SODIUM LEVEL 140 MEQ/L (136-145)
[2016-06-30 07:38] LABS: INR 2.15
[2016-06-30] MEDS: OMEGA-3 1050MG CAPSULE PO SCH (08:37)
[2016-06-30] MEDS: MIRALAX *UNIT DOSE* 17GM PACKET PO SCH (08:37)
[2016-06-30] MEDS: MULTIVITAMINS/MINERALS THERAP 1 TAB PO SCH (08:37)
[2016-06-30 14:00] VITALS: BP 115/58
[2016-06-30] MEDS ORDERED: WARFARIN SOD 1 MG TAB PO ONE (17:00)
[2016-06-30 20:53] VITALS: BP 129/68
[2016-07-01] MEDS: traMADol 50 MG TAB PO PRN (05:26)
[2016-07-01 06:37] VITALS: BP 120/59
[2016-07-01 07:30] LABS: INR 1.81
[2016-07-01] MEDS: MULTIVITAMINS/MINERALS THERAP 1 TAB PO SCH (09:00)
[2016-07-01] MEDS: MIRALAX *UNIT DOSE* 17GM PACKET PO SCH (09:00)
[2016-07-01] MEDS: OMEGA-3 1050MG CAPSULE PO SCH (09:00)
[2016-07-01] MEDS: oxyCODONE 5MG TAB PO PRN ×2 (13:07→20:17)
[2016-07-01 14:00] VITALS: BP 153/67
[2016-07-01] MEDS ORDERED: WARFARIN SOD 3 MG TAB PO ONE (17:00)
[2016-07-01 20:00] VITALS: BP 126/60
[2016-07-02] MEDS: traMADol 50 MG TAB PO PRN ×2 (01:24→23:27)
[2016-07-02 06:00] VITALS: BP 116/66
[2016-07-02 07:48] LABS: INR 1.6
[2016-07-02] MEDS: MIRALAX *UNIT DOSE* 17GM PACKET PO SCH (08:55)
[2016-07-02] MEDS: OMEGA-3 1050MG CAPSULE PO SCH (08:55)
[2016-07-02] MEDS: MULTIVITAMINS/MINERALS THERAP 1 TAB PO SCH (08:55)
--- NOTE | 2016-07-02 12:20 | IPNPDOC ---
Supervisor Screen [employer]ing Progress Note DATE OF SERVICE: 07/02/16 DATE OF ADMISSION: Jun 25, 2016 at 17:00 INPATIENT REHABILITATION ADMISSION DAY: #7 SUBJECTIVE: Patient is a 76-year-old white female with left hip fracture status post ORIF and nondisplaced distal left radial fracture with volar splint. Patient overall reports doing well no fever chills and pain is low. ALLERGIES: See Below MEDICATIONS: Reviewed, see below. OBJECTIVE: VITAL SIGNS: Please see below. PHYSICAL EXAMINATION: GENERAL: Short thin elderly white female who is alert and well oriented and in only mild musculoskeletal distress regarding the left hip and wrist. HEENT: Normocephalic/atraumatic. CARDIOVASCULAR: Regular rate and rhythm with normal S1 and S2. 2 out 4 bilateral pulses. LUNGS: All nowak clear to auscultation with good air movement. ABDOMEN: Benign, nontender, bowel sounds present in all quadrants. NEUROLOGICAL: Alert and oriented 4 speech is clear coherent and appropriate affect pleasant and cooperative memory is good. Normal right sided strength and range of motion with guarding of the left hip and left wrist. SKIN: Further improvement on clearing the ecchymoses from the fall and surgery. LABORATORY DATA: Reviewed. Please see below. MICROBIOLOGY: Please see below. IMAGING: No new DVT prophylaxis ordered?: Coumadin INR currently 1.60. Orthopedics to make adjustment on dose. ASSESSMENT AND PLAN: 1. Rehabilitation of left hip fracture with distal left radial fracture. Patient doing well in therapy on wheelchair to platform front wheeled walker mobility with increasing distance. PT to try stairs with patient today. Target discharge for 07/05/2016 to home with home care Nursing/PT/OT. Pt. will need Tub bench and Platform front wheeled walker. 2. Anemia: Remains stable with hemoglobin at 10.1. 3. DVT prophylaxis: INR has declined but activity has increased providing some protection. TIME SPENT: Chart Review, examination and documentation greater than 35 minutes. Allergies Coded Allergies: No Known Allergies (Verified , 09/21/02) Vital Signs Vital Signs Date Time Temp Pulse Resp B/P Pulse Ox O2 Delivery O2 Flow Rate FiO2 07/02/16 10:36 Room Air 07/02/16 06:00 100.0 103 18 116/66 96 Laboratory Data Labs 24H Laboratory Tests 2 07/02/16 07:27: Prothromb Time International Ratio 1.60, Prothrombin Time 19.1H Microbiology Microbiology 06/28/16 Blood Culture - Preliminary, Resulted No Growth after 72 hours. All specime... 06/28/16 Blood Culture - Preliminary, Resulted No Growth after 72 hours. All specime... 06/30/16 Stool Occult Blood (MAC) - Final, Complete 06/25/16 Urine Culture - Final, Complete Current Medications Current Medications Current Medications Fish Oil ([place]-3 (1050mg)) 1 ea DAILY PO Last administered on 06/28/16 08:14 ; Start 06/26/16 at 09:00; Stop 07/26/16 at 08:59 Home Med (Med Rec Complete!) ASDIRECTED XX ; Start 06/25/16 at 18:00; Stop 01/01 at 18:00; Status DC Magnesium Hydroxide (Milk Of Magnesia) 30 ml DAILYPRN PRN PO CONSTIPATION; Start 06/25/16 at 16:15; Stop 07/25/16 at 16:14 Multivitamins (Theragram-M) 1 tab DAILY PO Last administered on 06/28/16 08:13 ; Start 06/26/16 at 09:00; Stop 07/26/16 at 08:59 Oxycodone HCl (Roxicodone, Oxyir) 5 mg Q6HP PRN PO PAIN SCALE 6-10 Last administered on 07/01/16 20:17; Start 06/25/16 at 16:15; Stop 07/02/16 at 10:00 ; Status DC Polyethylene Glycol (Miralax) 1 pkt DAILY PO Last administered on 06/28/16 08: 12; Start 06/26/16 at 09:00; Stop 07/26/16 at 08:59 Senna (Senokot) 1 tab Q12HP PRN PO CONSTIPATION; Start 06/25/16 at 16:15; Stop 07/25/16 at 16:14 Tramadol HCl (Ultram) 50 mg Q6HP PRN PO MODERATE PAIN (PS 5-7) Last administered on 07/02/16 01:24; Start 06/25/16 at 16:15; Stop 07/09/16 at 16:14 NEYDA KEANE MD Jul 02, 2016 12:20
[2016-07-02 14:00] VITALS: BP 123/62
[2016-07-02] MEDS ORDERED: WARFARIN SOD 7.5 MG TAB PO ONE (17:00)
[2016-07-02 20:00] VITALS: BP 126/69
[2016-07-03 06:00] VITALS: BP 120/64
[2016-07-03 07:32] LABS: INR 1.52
--- NOTE | 2016-07-03 11:05 | IPNPDOC ---
[employer] Consultant Progress Note DATE OF SERVICE: 07/03/2016 DATE OF ADMISSION: Jun 25, 2016 at 17:00 INPATIENT REHABILITATION ADMISSION DAY: #8 SUBJECTIVE: Patient is a 76-year-old white female with left hip fracture and nondisplaced left radial fracture. Patient notes good pain control no fever or chills and is happy about her advancing mobility in therapies and targeted discharge to home on the . ALLERGIES: See Below MEDICATIONS: Reviewed, see below. OBJECTIVE: VITAL SIGNS: Please see below. PHYSICAL EXAMINATION: GENERAL: Short thin elderly white female in very little musculoskeletal distress sitting up in chair by bedside. Patient is alert and oriented 4 speech is clear coherent and appropriate. Patient in little to no musculoskeletal distress. CARDIOVASCULAR: Regular rate and rhythm with normal S1 and S2. LUNGS: All nowak clear to auscultation. NEUROLOGICAL: Sensorimotor intact with increasing functional strength on the left hip patient ambulating well with only touchdown weightbearing on the left lower extremity and bearing her weight through the platform of the walker on the left upper extremity. SKIN: Coloration continues to improve from the breakdown of the ecchymoses. LABORATORY DATA: Reviewed. Please see below. DVT prophylaxis ordered?: INR 1.52 today patient scheduled to receive 7.5 mg of Coumadin tonight as she did last night. ASSESSMENT AND PLAN: 1. Rehabilitation of left hip fracture status post ORIF: Patient doing well should be ready for discharge and 2 days. 2. Left distal radial fracture: Patient without pain using the left upper extremity appropriate, will ask orthopedics if we can split the web roll on the back of the splint to allow the patient to have the arm bathed. TIME SPENT: Chart Review, examination and documentation greater than 15 minutes. Allergies Coded Allergies: No Known Allergies (Verified , 09/21/02) Vital Signs Vital Signs Date Time Temp Pulse Resp B/P Pulse Ox O2 Delivery O2 Flow Rate FiO2 07/03/16 09:00 Room Air 07/03/16 06:00 98.7 90 18 120/64 96 Laboratory Data Labs 24H Laboratory Tests 2 07/03/16 07:04: Prothromb Time International Ratio 1.52, Prothrombin Time 18.4H Microbiology Microbiology 06/28/16 Blood Culture - Preliminary, Resulted No Growth after 72 hours. All specime... 06/28/16 Blood Culture - Preliminary, Resulted No Growth after 72 hours. All specime... 06/30/16 Stool Occult Blood (MAC) - Final, Complete 06/25/16 Urine Culture - Final, Complete Current Medications Current Medications Current Medications Fish Oil ([place]-3 (1050mg)) 1 ea DAILY PO Last administered on 06/28/16 08:14 ; Start 06/26/16 at 09:00; Stop 07/02/16 at 14:22; Status DC Home Med (Med Rec Complete!) ASDIRECTED XX ; Start 06/25/16 at 18:00; Stop 01/01 at 18:00; Status DC Magnesium Hydroxide (Milk Of Magnesia) 30 ml DAILYPRN PRN PO CONSTIPATION; Start 06/25/16 at 16:15; Stop 07/25/16 at 16:14 Multivitamins (Theragram-M) 1 tab DAILY PO Last administered on 06/28/16 08:13 ; Start 06/26/16 at 09:00; Stop 07/02/16 at 14:22; Status DC Oxycodone HCl (Roxicodone, Oxyir) 5 mg Q6HP PRN PO PAIN SCALE 6-10 Last administered on 07/01/16 20:17; Start 06/25/16 at 16:15; Stop 07/02/16 at 10:00 ; Status DC Polyethylene Glycol (Miralax) 1 pkt DAILY PO Last administered on 06/28/16 08: 12; Start 06/26/16 at 09:00; Stop 07/02/16 at 14:22; Status DC Senna (Senokot) 1 tab Q12HP PRN PO CONSTIPATION; Start 06/25/16 at 16:15; Stop 07/25/16 at 16:14 Tramadol HCl (Ultram) 50 mg Q6HP PRN PO MODERATE PAIN (PS 5-7) Last administered on 07/02/16 23:27; Start 06/25/16 at 16:15; Stop 07/09/16 at 16:14 NEYDA KEANE MD Jul 03, 2016 11:05
[2016-07-03 14:00] VITALS: BP 123/60
[2016-07-03] MEDS ORDERED: WARFARIN SOD 7.5 MG TAB PO ONE (17:00)
[2016-07-03 20:48] VITALS: BP 123/64
[2016-07-03] MEDS: traMADol 50 MG TAB PO PRN (22:01)
[2016-07-04 04:57] VITALS: BP 128/64
[2016-07-04 07:55] LABS: INR 1.9
[2016-07-04 14:36] VITALS: BP 122/70
--- NOTE | 2016-07-04 14:49 | IPNPDOC ---
[employer] Teacher Progress Note DATE OF SERVICE: 07/04/2016 DATE OF ADMISSION: Jun 25, 2016 at 17:00 INPATIENT REHABILITATION ADMISSION DAY: #9 SUBJECTIVE: Patient is a 76-year-old white female with left hip fracture status post ORIF and left distal radius fracture that is nondisplaced. Patient nonweightbearing on the left hip and left wrist beyond touchdown. She has been participating well in therapy using a platform front wheeled walker and is reaching all of her discharge goals including handling steps. Patient reports no significant pain problems or fever chills. However she requests her lisbeth, before she leaves. ALLERGIES: See Below MEDICATIONS: Reviewed, see below. OBJECTIVE: VITAL SIGNS: Please see below. PHYSICAL EXAMINATION: GENERAL: Thin short elderly white female who is alert and oriented 4. Patient is pleasant and cooperative with good sensory tumor been working very hard in therapy. HEENT: Normocephalic atraumatic. CARDIOVASCULAR: Regular rate and rhythm with normal S1 and S2 and no S3-S4 murmurs or rubs. 2 out 4 bilateral radial pulses LUNGS: All nowak are clear auscultation with good air movement. ABDOMEN: Flat, benign with normal bowel sounds in all quadrants. NEUROLOGICAL: Sensorimotor intact in right upper and lower extremity and distal left up upper and lower extremity however with restriction on left wrist and hand by splint due to nondisplaced distal radial fracture and left hip due to ORIF of the intertrochanteric fracture. Her balance is very good retention concentration to following training is also been very good. SKIN: Left hip incisions have healed across without any inflammation or drainage. [place] were removed today without incident and Steri-Strips placed at the hip and also distal sites on the lateral left hip and thigh. The ecchymoses are continuing to make good progress in clearing. No inflammation is observed. LABORATORY DATA: Reviewed. Please see below. MICROBIOLOGY: Please see below. IMAGING: No new. DVT prophylaxis ordered?: INR 1.90 which is improved. ASSESSMENT AND PLAN: 1. Rehabilitation of left hip fracture with ORIF: Patient doing very well in ambulation for nearly 100 yards using front wheeled walker with left platform. Patient also able to do steps today with standby to minimal assist. Patient reaching discharge goals with plan discharge tomorrow. 2. Left distal radial fracture: No pain or problems with it patient is return to work around using her left hand and the initial ecchymoses have continued to breakdown and be reabsorbed. 3. DVT prophylaxis: Patient nearly back into target range, this will be followed with INRs as home care works with patient and will have orthopedic adjust medications as needed. TIME SPENT: Chart Review, examination and documentation greater than 25 minutes. Allergies Coded Allergies: No Known Allergies (Verified , 09/21/02) Vital Signs Vital Signs Date Time Temp Pulse Resp B/P Pulse Ox O2 Delivery O2 Flow Rate FiO2 07/04/16 14:36 99.7 96 18 122/70 98 Room Air Laboratory Data Labs 24H Laboratory Tests 2 07/04/16 07:31: Prothromb Time International Ratio 1.90, Prothrombin Time 21.9H Microbiology Microbiology 06/28/16 Blood Culture - Final, Complete NO GROWTH AFTER 5 DAYS 06/28/16 Blood Culture - Final, Complete NO GROWTH AFTER 5 DAYS 06/30/16 Stool Occult Blood (MAC) - Final, Complete 06/25/16 Urine Culture - Final, Complete Current Medications Current Medications Current Medications Fish Oil ([place]-3 (1050mg)) 1 ea DAILY PO Last administered on 06/28/16 08:14 ; Start 06/26/16 at 09:00; Stop 07/02/16 at 14:22; Status DC Home Med (Med Rec Complete!) ASDIRECTED XX ; Start 06/25/16 at 18:00; Stop 01/01 at 18:00; Status DC Magnesium Hydroxide (Milk Of Magnesia) 30 ml DAILYPRN PRN PO CONSTIPATION; Start 06/25/16 at 16:15; Stop 07/25/16 at 16:14 Multivitamins (Theragram-M) 1 tab DAILY PO Last administered on 06/28/16 08:13 ; Start 06/26/16 at 09:00; Stop 07/02/16 at 14:22; Status DC Oxycodone HCl (Roxicodone, Oxyir) 5 mg Q6HP PRN PO PAIN SCALE 6-10 Last administered on 07/01/16 20:17; Start 06/25/16 at 16:15; Stop 07/02/16 at 10:00 ; Status DC Polyethylene Glycol (Miralax) 1 pkt DAILY PO Last administered on 06/28/16 08: 12; Start 06/26/16 at 09:00; Stop 07/02/16 at 14:22; Status DC Senna (Senokot) 1 tab Q12HP PRN PO CONSTIPATION; Start 06/25/16 at 16:15; Stop 07/25/16 at 16:14 Tramadol HCl (Ultram) 50 mg Q6HP PRN PO MODERATE PAIN (PS 5-7) Last administered on 07/03/16t 22:01; Start 06/25/16 at 16:15; Stop 07/09/16 at 16:14 NEYDA KEANE MD Jul 04, 2016 14:49
[2016-07-04] MEDS ORDERED: WARFARIN SOD 2.5 MG TAB PO ONE (17:00)
[2016-07-04] MEDS: traMADol 50 MG TAB PO PRN (19:50)
[2016-07-04 20:00] VITALS: BP 121/64
[2016-07-05 06:00] VITALS: BP 122/57
[2016-07-05 07:17] LABS: INR 2.13
[2016-07-05] MEDS ORDERED: COUM2.5T11 PO (08:12)
[2016-07-05] MEDS ORDERED: TRAM50TA2 PO (09:36)
--- NOTE | 2016-07-05 17:32 | PMRDS ---
DATE OF ADMISSION: 06/25/2016 DATE OF DISCHARGE: 07/05/2016 DISCHARGE DIAGNOSIS: 1. Rehabilitation of left hip fracture status post open reduction and internal fixation. 2. Left radial nondisplaced distal fracture. 3. Anemia. 4. Hyperlipidemia. HISTORY OF PRESENT ILLNESS: The patient is a 76-year-old white female who on 06/22/2016, while moving around at home, tripped over a step between the kitchen and living room, landing on her left hip and wrist. She sustained an intertrochanteric fracture of the left hip that was closed and a distal left wrist fracture and was brought to [facility] Emergency Room on 06/22/2016, where the distal left radial fracture without displacement and the closed left hip comminuted intertrochanteric fracture were found. On 06/24/2016, the patient had open reduction and internal fixation of the hip. She tolerated the procedure well and was assessed following that by physical and occupational therapy. She participated well in therapy. She is requiring a non-weightbearing or touchdown weightbearing status on the left lower extremity and also is unable to bear weight through her left hand and wrist. Therefore, the patient needs special training to regain the mobility and activities of daily living (ADLs) skills for return to home and she was transferred on 06/25/2016 to the acute rehabilitation unit and started on a program of physical and occupational therapy. PAST MEDICAL HISTORY: Includes: Left cataract surgery, tonsillectomy and left mastoidectomy, but otherwise a basically healthy 76-year-old female without significant medical problems. PHYSICAL EXAMINATION: The patient is a thin, elderly, white female who is alert and oriented times four. Speech is clear, coherent and appropriate. Affect is pleasant and cooperative. Memory is good. Motor is intact in the right upper and lower extremity. There is some guarding down around the left wrist and hand and the left hip. However, patient with a very good sense of balance and good learning skills consistently uses a platform rolling or front wheeled walker for ambulations of greater than 150 feet and she was able to go up and down four steps using a right-sided hand rail. Lungs were clear. Abdomen: Benign. PROCEDURES: None performed on this unit. DIAGNOSTIC AND LABORATORY: Showed mild anemia with hemoglobin and hematocrit varying from admission of 10.3 and 31.6 to discharge of 10.1 and 31.1 for the last test which was on 06/30/2016. Basic metabolic panel does show a slightly elevated potassium of 4.2 and carbon dioxide at 29 with BUN of 10, creatinine of 0.5, and glomerular filtration rate greater than 60 which is very good, along with INR, at the time of discharge today INR was 2.13 in the therapeutic range of 2-3. HOSPITAL COURSE: The patient participated well in therapy, was medically stable on the lassiter, a good learner, and had transitioned from not being able to transfer to supervision to modified independent in basic transfers and mobility with supervision of steps after not being able to transfer at all at start of therapy without moderate one person assist. DISCHARGE MEDICATIONS: - tramadol 50 mg every six hours as needed for moderate pain - Coumadin 2.5 mg by mouth daily as directed - calcium carbonate 600 mg by mouth daily - fish oil 1000 mg capsule by mouth daily - multivitamin one tablet by mouth daily COMPLICATIONS: None. DISCHARGE PLAN AND INSTRUCTIONS: The patient is discharged to home with home care nursing to check international normalized ratios (INRs) and report them to Dr. Whyte and the orthopedic service for adjustment. Also physical and occupational therapy to further progress mobility and activities of daily living (ADLs), especially as the patient heals her fractures and is then able to weight bear on those extremities. It is felt that the patient has a good prognosis for regaining prior level of community independence. The patient will see her primary care provider within 3-[address] Whyte within the next two weeks as scheduled by Ms. Russo, his nurse practitioner. Time spent on discharge was greater than 35 minutes. cc: MD ZACARIAS Naqvi
== END 2016-07-05 12:45 | disposition home health service (06) | DRG 561 ==
LOC: M PM&R 17:00
PROVIDERS: ADMIT Physical Medicine & Rehabilitation; ATTEND Physical Medicine & Rehabilitation
DX: S72.142D Displaced intertrochanteric fracture of left femur, subsequent encounter for closed fracture with routine healing (principal); S52.592D Other fractures of lower end of left radius, subsequent encounter for closed fracture with routine healing; Z79.899 Other long term (current) drug therapy; I10 Essential (primary) hypertension; D64.9 Anemia, unspecified; E11.9 Type 2 diabetes mellitus without complications; E78.5 Hyperlipidemia, unspecified; W01.0XXD Fall on same level from slipping, tripping and stumbling without subsequent striking against object, subsequent encounter; Y92.010 Kitchen of single-family (private) house as the place of occurrence of the external cause; Y93.01 Activity, walking, marching and hiking; I70.209 Unspecified atherosclerosis of native arteries of extremities, unspecified extremity

== ENCOUNTER 2018-03-04 05:45 | Day surgery (SDC) | payer MEDICARE, BC, OTHER ==
[2018-03-04] MEDS ORDERED: LR 1,000 ML IV (06:00)
[2018-03-04] MEDS ORDERED: MIDAZOLAM INJ 2 MG/2 ML VIAL (J2250) As Ordered (07:20)
[2018-03-04] MEDS ORDERED: ONDANSETRON 4MG/2ML VIAL (J2405) As Ordered (07:20)
[2018-03-04] MEDS ORDERED: fentaNYL 100 MCG/2 ML INJECTION (J3010) As Ordered ×3 (07:20→13:27)
[2018-03-04] MEDS ORDERED: LIDOCAINE 2% INJ 100 MG/5 ML SDV (FOR ANES.) As Ordered (07:20)
[2018-03-04] MEDS ORDERED: PROPOFOL 200 MG/20 ML VIAL As Ordered (07:20)
[2018-03-04] MEDS ORDERED: dexameTHASONE 4 MG/ML 1ML VIAL (J1100) As Ordered (07:20)
[2018-03-04] MEDS: LIDOCAINE 2% W/EPIN INJ 20ML **PRES FREE As Ordered (07:46)
[2018-03-04] MEDS: ceFAZolin 1GM INJ (J0690 PER 500MG) IV (07:58)
[2018-03-04] MEDS ORDERED: KETOROLAC 60 MG/2 ML VIAL (J1885) As Ordered (08:18)
[2018-03-04] MEDS ORDERED: PHENYLephrine HCL 500 MCG/5 ML (100MCG/ML) SYRINGE (J2370) As Ordered (08:20)
[2018-03-04] MEDS ORDERED: HYDROmorphone HCL 2 MG/ML 1ML VIAL (J1170) As Ordered (09:08)
[2018-03-04] MEDS ORDERED: ESMOLOL INJ 100MG/10ML VIAL As Ordered (11:48)
[2018-03-04] MEDS: ceFAZolin 1GM INJ (J0690 PER 500MG) As Ordered (12:00)
[2018-03-04] MEDS ORDERED: METOCLOPRAMIDE INJ 10MG/2ML VIAL (J2765) As Ordered (12:07)
[2018-03-04] MEDS: LIDOCAINE W/EPINEPHRINE 1% 20ML VIAL As Ordered (12:12)
[2018-03-04] MEDS: BACITRACIN OINT 30GM As Ordered (12:39)
[2018-03-04] MEDS: fentaNYL 100 MCG/2 ML INJECTION (J3010) IV (13:36)
[2018-03-04] MEDS: LR 1,000 ML IV (13:45)
[2018-03-04] MEDS ORDERED: PERCOCET 5MG/325MG TAB PO (13:45)
[2018-03-04] MEDS: PERCOCET 5MG/325MG TAB PO ×2 (14:43→20:47)
[2018-03-04] MEDS: ONDANSETRON 4MG/2ML VIAL (J2405) IV (14:44)
[2018-03-04] MEDS: ceFAZolin SOD 1 GM in D5W MINI-BAG PLUS 50 ML IV (20:47)
[2018-03-05] MEDS: ceFAZolin SOD 1 GM in D5W MINI-BAG PLUS 50 ML IV (03:21)
[2018-03-05] MEDS: PERCOCET 5MG/325MG TAB PO ×2 (03:25→09:37)
== END 2018-03-05 11:45 | disposition home or self-care (01) ==
LOC: M SDC 05:45 → M MS5PR 14:12
DX: C44.41 Basal cell carcinoma of skin of scalp and neck (principal); E78.5 Hyperlipidemia, unspecified; R73.01 Impaired fasting glucose; M12.9 Arthropathy, unspecified; M81.0 Age-related osteoporosis without current pathological fracture; R06.83 Snoring; R32 Unspecified urinary incontinence; Z79.899 Other long term (current) drug therapy; Z79.82 Long term (current) use of aspirin; Z85.3 Personal history of malignant neoplasm of breast; Z92.21 Personal history of antineoplastic chemotherapy; Z78.0 Asymptomatic menopausal state; Z98.42 Cataract extraction status, left eye; Z96.1 Presence of intraocular lens; Z87.81 Personal history of (healed) traumatic fracture
CPT/HCPCS: 14021

== ENCOUNTER 2019-02-06 12:57 | Inpatient (IN) | payer MEDICARE, BC, OTHER ==
[~2019-02-06] VITALS: Ht 157.5 cm; Wt 46.8 kg
[~2019-02-06 12:57] MED LIST changes: +ASPI-1 PO; +CALC600T3 PO; +CALC600T7 PO; +COUM2.5T17 PO; +FISH7.5C PO; +MAGN250T7 PO; +PERCOCET PO; +SIMV5TAB12 PO; +TRAM50TA2 PO
[2019-02-06] MEDS ORDERED: MORPHINE 2 MG/ML 1ML VIAL (J2270) IM ONE (14:15)
[2019-02-06] MEDS ORDERED: ONDANSETRON 4 MG ORAL DISINTEGRATING TAB (Q0162 PER 1MG) PO ONE (14:15)
[2019-02-06] MEDS ORDERED: CALC600T57 PO (16:45)
[2019-02-06] MEDS ORDERED: SIMV10TA21 PO (16:45)
[2019-02-06] MEDS ORDERED: MAGN400T3 PO (16:45)
--- NOTE | 2019-02-06 16:59 | REP ---
PELVIS COMPLETE: Three views of the pelvis are performed, with an AP view performed in addition to views with superior and inferior angulation. There is a nondisplaced fracture of the left inferior pubic ramus. I see no other evidence of acute fracture or dislocation. Metallic fixation is seen in the proximal left femur. Bowel gas limits evaluation of the sacrum. Electronically Signed by Philip Sales MD 02/09/2019 10:11 A
--- NOTE | 2019-02-06 17:24 | REP ---
CT PELVIS WITHOUT IV CONTRAST: CT pelvis was performed without IV contrast. Sagittal and coronal reconstruction images are performed. There is a nondisplaced fracture of the left inferior pubic ramus. There is a nondisplaced fracture of the left sacrum. No other acute fracture or dislocation is seen. There is metallic internal fixation in the proximal left femur. There are degenerative changes of the lower lumbar spine. The visualized intrapelvic structures appear unremarkable. IMPRESSION: Nondisplaced fractures of the left sacrum and inferior pubic ramus. Electronically Signed by Philip Sales MD 02/09/2019 10:12 A
[2019-02-06] MEDS ORDERED: MAGNESIUM OXIDE 400 MG TAB (MAG-OX) PO PRN (17:45)
[2019-02-06] MEDS ORDERED: PERCOCET 5MG/325MG TAB PO PRN (17:45)
[2019-02-06 18:30] VITALS: BP 121/62
--- NOTE | 2019-02-06 19:00 | HPE ---
DATE OF ADMISSION: 02/06/2019 ADMITTING PHYSICIAN: Dr. Terrell Galaviz ADMITTING DIAGNOSIS: Nondisplaced fracture of the left sacrum and the left pubic rami. HISTORY OF PRESENT ILLNESS: This is a very pleasant 78-year-old female with a pertinent past medical history of osteoporosis, currently not on bisphosphate, who is presenting to the emergency room (ER) after a mechanical fall earlier this morning. The patient is accompanied by her niece and her niece's , Rianna and Jamil respectively. She states that when she was out at the [employer] parking lot, she was trying to put groceries in her backseat and the wind blew her car door closed which caused her to fall onto her bottom. She denies hitting her head or any trauma to her face. She denies having any lightheadedness, syncopal episode, dizziness, headaches prior to the fall or in the past. The patient states that she was unable to get up due to the pain and she was helped up by two random men in parking lot. They assisted her to their car and proceeded to take her to the ER. At that time, she was able to bear weight but it was significantly painful. When she got to the urgent care, she had imaging done which was documented to have a minimally displaced acute fracture of the left inferior pubic rami. The patient states that while she was at the urgent care the pain became significant and that she was unable to ambulate, so she called the ambulance to transfer her to [facility]. Once in our ER, her vital signs were stable, within normal limits. Imaging from the urgent care was uploaded and pelvic CT was obtained which showed nondisplaced fractures of the left sacrum and the inferior pubic rami. Hospitalist team was then called for medical admission and to consult Dr. Smith, orthopedic surgery. PAST MEDICAL HISTORY: 1. Osteoporosis, currently not on bisphosphonate. 2. Left hip fracture. 3. Hyperlipidemia. PAST SURGICAL HISTORY: 1. Left and right cataract surgery. 2. Tonsillectomy. 3. Left mastectomy in 1998 for breast cancer. 4. Basal cancer removal on the head in 2018. 5. Open reduction internal fixation (ORIF) of the left hip. ALLERGIES: No known drug allergies. SOCIAL HISTORY: Does not smoke. Does not abuse alcohol or recreational drugs. Has no pets and no recent travel. HOME MEDICATIONS: - aspirin 325 daily as needed for pain - calcium carbonate/vitamin D3 two tablets by mouth every morning - magnesium oxide 400 mg tablets daily as needed for constipation - multivitamin one tablet by mouth daily - simvastatin 5 mg by mouth at bedtime FAMILY HISTORY: Reviewed and was negative for osteoporosis but positive for breast cancer and cardiac history. REVIEW OF SYSTEMS: Unless stated above, the remaining 10-point review of systems was negative. PHYSICAL EXAMINATION: VITAL SIGNS: Temperature 99.5, pulse 93, respirations 20, blood pressure 142/59 (86), pulse oximetry 93% on room air. GENERAL: This is a very pleasant 78-year-old female sitting up in the bed, awake, alert and oriented, speaking in complete sentences, in no acute distress. HEENT: Normocephalic, atraumatic. Pupils are equal, round, and reactive. Moist mucous membranes with no jugular venous distention (JVD) noted. CARDIOVASCULAR: S1, S2 sounds, regular rate and rhythm. No audible murmurs, rubs, or gallops. RESPIRATORY: Clear to auscultation bilaterally. ABDOMEN: Positive bowel sounds in all four quadrants. Abdomen is soft, tenderness on the pubic rami, more on the left, more prominent on the inferior pubic bone than the superior pubic bone on the left. EXTREMITIES: No clubbing, cyanosis, or edema. Normal range of motion in the right leg in all four planes. No tenderness on palpation of the hip or the knee and ankle. Muscle strength 5/5 on the right leg. Left Leg: Unable to assess range of motion due to pain. Tenderness with palpation of the left hip. No tenderness with palpation of the right knee or ankle. No visual bruising, swelling or skin breakdown noted of both hips. NEUROLOGIC: Spontaneously able to move all three extremities except the left extremity due to pain. Able to dorsiflex and plantar flex bilateral with no problems. Cranial nerves II-XII grossly intact with no gross focal deficits noted. PSYCHOLOGIC: Appropriate affect. LABORATORY DATA: None. MICROBIOLOGY: None. IMAGING STUDIES: 02/06/2019 pelvic x-ray: Nondisplaced fracture of the left inferior pubic ramus. 02/06/[address]: Nondisplaced fracture of the left sacrum and the inferior pubic rami. ASSESSMENT AND PLAN: This is an 78 -year-old female with a pertinent past medical history of osteoporosis, currently not on bisphosphate, presenting today for a nondisplaced fracture of the left sacrum and left pubic rami status post mechanical fall. 1. Nondisplaced fracture of the left pubic rami and sacrum, status post mechanical fall. Dr. Smith, orthopedic was consulted in the emergency room (ER) and he will evaluate the patient. Recommendations include weightbearing as tolerated. Pain control is ibuprofen and Percocet two tablets for pain control on a pain scale. Physical therapy (PT) was ordered as well. Because this is a nondisplaced fracture, we will end up doing progressive weightbearing. There is no neurological deficit noted. Surgical fixation is only indicates if there is persistent pain after nonoperative management or if there is any soft tissue compromise which I do not know. I will leave for orthopedics for further recommendations. 2. Hyperlipidemia. We will continue with her simvastatin 5 mg by mouth at bedtime. 3. History of osteoporosis, currently not on bisphosphonate. We will continue with her calcium and vitamin D3. 4. No pertinent cardiac history. The patient denies any positive cardiac or respiratory history. She has tolerated all surgeries with no complications. She is able to do four mets with no problem. She has no allergies to anesthesia as well. 5. Diet: Two-gram sodium diet. 6. Deep vein thrombosis (DVT) prophylaxis. We will thromboembolic-deterrent stockings (TEDS) and sequentials. CODE STATUS: DO NOT RESUSCITATE (DNR)/DO NOT INTUBATE (DNI). Patient was seen and examined by me this morning with the residents. Agree with the above assessment and plan MTDD
[2019-02-06 19:42] LABS: HEMATOCRIT 38.9 % (36.0-47.0); HEMOGLOBIN 12.8 g/dl (12.0-15.5); MEAN CORPUSCULAR HEMOGLOBIN 28.6 pg (27.0-33.0); MEAN CORPUSCULAR HGB CONC 32.9 g/dl (32.0-36.5); MEAN CORPUSCULAR VOLUME 86.8 fl (80.0-96.0); PLATELET COUNT, AUTOMATED 212 10^3/uL (150-450); RED BLOOD COUNT 4.48 10^6/uL (4.00-5.40); WHITE BLOOD COUNT 11.3 10^3/uL (4.0-10.0)
[2019-02-06 19:44] LABS: INR 1.02; PROTHROMBIN TIME 13.1 SECONDS (11.8-14.0)
[2019-02-06 20:10] LABS: ALBUMIN 3.2 GM/DL (3.2-5.2); ALT/SGPT 27 U/L (12-78); BILIRUBIN,TOTAL 0.9 MG/DL (0.2-1.0); BLOOD UREA NITROGEN 13 MG/DL (7-18); CARBON DIOXIDE LEVEL 28 MEQ/L (21-32); CHLORIDE LEVEL 105 MEQ/L (98-107); CREATININE FOR GFR 0.71 MG/DL (0.55-1.30); GLOMERULAR FILTRATION RATE > 60.0 (>32); GLUCOSE, FASTING 132 MG/DL (70-100); POTASSIUM SERUM 3.7 MEQ/L (3.5-5.1); SODIUM LEVEL 140 MEQ/L (136-145); TOTAL PROTEIN 6.5 GM/DL (6.4-8.2)
[2019-02-06 22:00] VITALS: BP 125/63
[2019-02-06] MEDS: SIMVASTATIN 10 MG TAB PO SCH (22:49)
[2019-02-06] MEDS: HEPARIN SOD (PORCINE) 5000 UNITS/ML VIAL SC SCH (22:49)
[2019-02-06] MEDS: oxyCODONE 5MG TAB PO PRN (22:56)
[2019-02-07] MEDS: HEPARIN SOD (PORCINE) 5000 UNITS/ML VIAL SC SCH ×2 (05:34→18:29)
[2019-02-07] MEDS: oxyCODONE 5MG TAB PO PRN ×3 (05:43→18:29)
[2019-02-07 06:00] VITALS: BP 117/64
[2019-02-07] MEDS: CALCIUM/VITAMIN D 500 MG TAB PO SCH (09:18)
[2019-02-07] MEDS: MULTIVITAMINS/MINERALS THERAP 1 TAB PO SCH (09:18)
[2019-02-07 14:44] VITALS: BP 116/64
--- NOTE | 2019-02-07 15:52 | IPNPDOC ---
Date Seen The patient was seen on 02/07/19. Progress Note SUBJECTIVE: Patient has no complaints today. Pain is controlled with current regiment. She states that she is working with PT and is went to work with him later today. She denies chest pain, shortness breath, nausea, vomiting, fevers, chills OBJECTIVE PHYSICAL EXAMINATION: VITAL SIGNS: Please see below. GENERAL: Pleasant sitting up in bed awake alert oriented speaking in complete sentences no acute distress HEENT: Moist mucous membranes no elevation in CVP CARDIOVASCULAR: S1 S2 regular no additional heart sounds appreciated. RESPIRATORY: Clear to auscultation bilaterally. ABDOMINAL: Bowel sounds present abdomen soft and nontender EXTREMITIES: No clubbing, cyanosis, or edema. Normal range of motion in the right leg in all four planes. No tenderness on palpation of the hip or the knee and ankle. Muscle strength 5/5 on the right leg. Left Leg: Unable to assess range of motion due to pain. Tenderness with palpation of the left hip (Improving). No tenderness with palpation of the right knee or ankle. No visual bruising, swelling or skin breakdown noted of both hips. NEUROLOGICAL: Spontaneously moves all 4 extremities cranial 2 through 12 grossly intact no gross focal deficits appreciated PSYCHOLOGICAL: Appropriate LABORATORY DATA, MICROBIOLOGY: Please see below. IMAGING STUDIES: 02/06/2019 Pelvic x-ray: Nondisplaced fracture of the left inferior pubic ramus. Pelvic CT: Nondisplaced fracture of the left sacrum and the inferior pubic rami. ASSESSMENT AND PLAN: This is a 78 -year-old female with a pertinent past medical history of osteoporosis, currently not on bisphosphate, presenting today for a nondisplaced fracture of the left sacrum and left pubic rami status post mechanical fall. PROBLEMS: Nondisplaced fracture of the left pubic rami and sacrum, s/p mechanical fall -Dr. Smith, orthopedic, consulted -weightbearing as tolerated ambulate with walker -pain control :ibuprofen and Percocet 1-2 tablets for pain control on a pain scale. -Physical therapy (PT) consulted Hyperlipidemia c/w her simvastatin 5 mg qhs History of osteoporosis, currently not on bisphosphonate -c/w calcium and vitamin D3. No pertinent cardiac history or respiratory history -tolerated all surgeries in the past with no complications Diet -Two-gram sodium diet. DVT prophylaxis: TEDs and sequentials DISPOSITION: Medically stable. Continue work with PT VS, I&O, 24H, [place] Vital Signs/I&O Vital Signs Date Time Temp Pulse Resp B/P (MAP) Pulse Ox O2 Delivery O2 Flow Rate FiO2 02/07/19 14:44 98.6 90 18 116/64 (81) 94 Room Air I&O- Last 24 Hours up to 6 AM 02/07/19 06:00 Intake Total 240 ml Output Total 650 ml Balance -410 ml Laboratory Data 24H LABS Laboratory Tests 2 02/06/19 19:26: Nucleated Red Blood Cells % (auto) 0.0, Prothrombin Time 13.1, Prothromb Time International Ratio 1.02, Anion Gap 7L, Glomerular Filtration Rate > 60.0, Calcium Level 9.0, Total Bilirubin 0.9, Aspartate Amino Transf (AST/SGOT) 22, Alanine Aminotransferase (ALT/SGPT) 27, Alkaline Phosphatase 63, Total Protein 6.5, Albumin 3.2, Albumin/Globulin Ratio 0.97L CBC/BMP Laboratory Tests 02/06/19 19:26 GME ATTESTATION GME ATTESTATION My faculty preceptor for this patient encounter was physically present during the encounter and was fully available. All aspects of the patient interview, examination, medical decision making process, and medical care plan development were reviewed and approved by the faculty preceptor. The faculty preceptor is aware and concurs with the plan as stated in the body of this note and will attest to such by his/her cosignature. ATTENDING NOTE Pt was seen and examined by me personally. Agree with the above assessment and plan . BASSAM OLIVEIRA DO Feb 07, 2019 15:52 CRISTEL MOSES MD Feb 07, 2019 16:30
[2019-02-07] MEDS: SIMVASTATIN 10 MG TAB PO SCH (20:20)
[2019-02-07 22:00] VITALS: BP 117/64
[2019-02-08] MEDS: HEPARIN SOD (PORCINE) 5000 UNITS/ML VIAL SC SCH ×2 (04:07→17:47)
[2019-02-08 06:00] VITALS: BP 112/63
[2019-02-08] MEDS ORDERED: MIRALAX *UNIT DOSE* 17GM PACKET PO PRN (08:30)
[2019-02-08] MEDS: CALCIUM/VITAMIN D 500 MG TAB PO SCH (09:16)
[2019-02-08] MEDS: MULTIVITAMINS/MINERALS THERAP 1 TAB PO SCH (09:16)
[2019-02-08] MEDS: oxyCODONE 5MG TAB PO PRN ×2 (09:16→17:47)
--- NOTE | 2019-02-08 11:19 | CR ---
DATE OF CONSULTATION: 02/07/2019 INDICATION: Left-sided pelvic fracture. HISTORY OF PRESENT ILLNESS: Diya is an 78-year-old female who is status post cephalomedullary nail fixation of an intertrochanteric [place] [address] Whyte who had a mechanical fall on the morning of 02/06/2019. She was brought to emergency department where x-rays showed no zay-implant fractures but were suggestive of an inferior pubic ramus fracture of unclear chronicity. CT scan was requested after I was consulted by the hospitalist and this showed nondisplaced fracture of the inferior pubic ramus and a posterior sacral fracture consistent with an LC1 (lateral compression type 1) fracture pattern. When I spoke with the patient, she is reporting pain in the area of the greater trochanter and the posterior aspect of her lower back. Denied groin pain. PAST MEDICAL HISTORY: Notable for osteoporosis and high cholesterol. PAST SURGICAL HISTORY: Cataracts Tonsillectomy. Mastectomy. Basal cell cancer excision. Hip fracture surgery. MEDICATIONS: - aspirin - calcium with vitamin D - magnesium - multivitamin - simvastatin ALLERGIES: NO KNOWN DRUG ALLERGIES. SOCIAL HISTORY: The patient uses a walker at baseline for ambulation. She does not smoke, abuse alcohol or illicit drugs. REVIEW OF SYSTEMS: The patient denied neurologic, cardiac, pulmonary, abdominal symptoms. Musculoskeletal as above. PHYSICAL EXAMINATION: Physical exam reveals an elderly female in no distress. Alert and times three. Neurologic: Appropriate mood and pleasant affect. Cardiovascular: 2+ dorsalis pedis (DP) pulse. Pulmonary: Nonlabored breathing. Musculoskeletal: The patient has tenderness to palpation of the greater trochanter and the left side of the SI joint. There is no groin pain with log roll. No tenderness at the knee. She was able to fire EHL, FHL, TA and GS. Sensation to light touch in the foot grossly intact. I did personally review her x-rays and CT scan. ASSESSMENT/PLAN: Diya Hdz is an 78-year-old female with an LC1 pelvis fracture of the left side. She can be weightbearing as tolerated with a walker. She should continue vitamin D. She should followup in the office in roughly 2 weeks for a clinical recheck and to get repeat x-rays. She will need an AP pelvis and inlet/outlet views. I educated the patient to expect a moderate degree of pain for the first 3-4 weeks and then as the fracture starts healing, she should progress rapidly. There is no surgical indication and she was relieved to hear that. These recommendations were relayed to the director medical surgical. She will be discharged per the hospitalist discretion.
[2019-02-08 14:56] VITALS: BP 109/59
--- NOTE | 2019-02-08 16:06 | IPN ---
DATE OF SERVICE: 02/08/2019 The patient states her pain is 2 out of 10 at the pelvic area, working with occupational therapy (OT) and physical therapy (PT) at the bedside, trying to get up with her legs dangling on the side of the bed. The patient states that she slept well last night with no pain overnight. No fever or chills. No trouble breathing, chest pain, pressure, tightness, lightheadedness, or dizziness. PHYSICAL EXAMINATION: VITAL SIGNS: Temperature 98.6, pulse 75, respiratory rate 18, blood pressure 112/63, 94% on room air. GENERAL: Awake, alert, oriented times three. Answering questions apprporiately. LUNGS: Clear to auscultation. No wheezing, rales or rhonchi. HEART: S1, S2. Sinus rhythm. ABDOMEN: Soft, nontender, nondistended. Positive bowel sounds. EXTREMITIES: No cyanosis, clubbing or pitting edema. LABORATORY DATA/MICROBIOLOGY/IMAGING STUDIES: Reviewed. Pelvic x-ray shows nondisplaced fracture of left inferior pubic ramus, left sacrum and inferior pubic rami. ASSESSMENT AND PLAN: 78-year-old female with history of dyslipidemia, left hip fracture, osteoporosis not on biphosphonate, breast cancer with left mastectomy, basal cell cancer on the head, open reduction, internal fixation (ORIF) of left hip, who was in her usual state of health when she had a fall on her buttocks when the wind blew her car door while she was putting groceries into her backseat at the [employer] parking lot. The patient was unable to get up and was found to have a left inferior pubic rami, sacral fracture. CURRENT ISSUES: 1. Pubic rami fracture. Activity as tolerated. Currently on as needed Percocet one to two tablets daily. Subcutaneous heparin for deep vein thrombosis (DVT) prophylaxis. We will add a bowel regimen. 2. Osteoporosis. On vitamin D and calcium supplements. 3. Magnesium deficiency. On chronic magnesium oxide. Await physical therapy (PT) and occupational therapy (OT) clearance prior to discharge home. [facility]
[2019-02-08] MEDS: SENOKOT S TAB PO PRN (17:46)
[2019-02-08] MEDS: SIMVASTATIN 10 MG TAB PO SCH (20:36)
[2019-02-08] MEDS: IBUPROFEN 600 MG TAB PO PRN (20:36)
[2019-02-08 22:00] VITALS: BP 108/59
[2019-02-09] MEDS: HEPARIN SOD (PORCINE) 5000 UNITS/ML VIAL SC SCH ×2 (05:26→17:47)
[2019-02-09 06:00] VITALS: BP 116/64
--- NOTE | 2019-02-09 07:08 | REP ---
Pelvis left hip: Three views. Outside film interpretation. History: Question fracture. Comparison left hip radiographs are from June 24, 2016. Findings: There is an intramedullary sebas and and transverse femoral head fixation screw in place in the proximal femur on the left. It is unchanged in position from the July 05, 2016 studies. No fracture is seen in the proximal femur. There is a nondisplaced new fracture in the inferior pubic ramus however as a change from the 2017 study. There is advanced diffuse osteopenia. No other pelvic or sacral fracture is seen. Vascular calcification is noted. Visualized bowel gas pattern is unremarkable. Impression: Diffuse osteoporosis. No hip fracture seen. Nondisplaced inferior pubic ramus fracture is new from the July 05, 2016 prior radiographs. Electronically Signed by Marcin Arguelles MD 02/06/2019 01:41 P
[2019-02-09] MEDS: SENOKOT S TAB PO PRN (08:21)
[2019-02-09] MEDS: MULTIVITAMINS/MINERALS THERAP 1 TAB PO SCH (08:22)
[2019-02-09] MEDS: CALCIUM/VITAMIN D 500 MG TAB PO SCH (08:22)
[2019-02-09] MEDS ORDERED: SENN-52 PO (08:36)
[2019-02-09] MEDS ORDERED: OXYCO5TA PO (08:36)
[2019-02-09] MEDS ORDERED: CALCD50TA PO (08:36)
[2019-02-09] MEDS ORDERED: IBUP-1022 PO (08:36)
[2019-02-09] MEDS ORDERED: PEG1POW PO (08:36)
[2019-02-09 14:46] VITALS: BP 114/54
[2019-02-09] MEDS: IBUPROFEN 600 MG TAB PO PRN ×2 (14:58→21:43)
[2019-02-09 20:33] VITALS: BP 114/58
[2019-02-09] MEDS: SIMVASTATIN 10 MG TAB PO SCH (21:43)
[2019-02-10] MEDS: IBUPROFEN 600 MG TAB PO PRN (05:56)
[2019-02-10 05:57] VITALS: BP 114/60
[2019-02-10] MEDS: HEPARIN SOD (PORCINE) 5000 UNITS/ML VIAL SC SCH (05:57)
[2019-02-10 06:56] LABS: BASO % 0.2 % (0.0-1.0); EOS # 0.2 10^3/uL (0.0-0.5); EOS % 3.8 % (0.0-3.0); HEMATOCRIT 43.7 % (36.0-47.0); HEMOGLOBIN 13.9 g/dl (12.0-15.5); LYMPH # 1.6 10^3/uL (1.5-5.0); LYMPH % 30.4 % (24.0-44.0); MEAN CORPUSCULAR HEMOGLOBIN 27.9 pg (27.0-33.0); MEAN CORPUSCULAR HGB CONC 31.8 g/dl (32.0-36.5); MEAN CORPUSCULAR VOLUME 87.8 fl (80.0-96.0); MONO # 0.6 10^3/uL (0.0-0.8); MONO % 10.6 % (0.0-5.0); NEUTROPHILS # 2.9 10^3/uL (1.5-8.5); NEUTROPHILS % 54.6 % (36.0-66.0); PLATELET COUNT, AUTOMATED 263 10^3/uL (150-450); RED BLOOD COUNT 4.98 10^6/uL (4.00-5.40); WHITE BLOOD COUNT 5.3 10^3/uL (4.0-10.0)
[2019-02-10 07:20] LABS: BLOOD UREA NITROGEN 14 MG/DL (7-18); CALCIUM LEVEL 8.9 MG/DL (8.8-10.2); CARBON DIOXIDE LEVEL 28 MEQ/L (21-32); CHLORIDE LEVEL 108 MEQ/L (98-107); CREATININE FOR GFR 0.65 MG/DL (0.55-1.30); GLOMERULAR FILTRATION RATE > 60.0 (>32); GLUCOSE, FASTING 106 MG/DL (70-100); POTASSIUM SERUM 3.9 MEQ/L (3.5-5.1); SODIUM LEVEL 142 MEQ/L (136-145)
[2019-02-10] MEDS: MULTIVITAMINS/MINERALS THERAP 1 TAB PO SCH (09:18)
[2019-02-10] MEDS: CALCIUM/VITAMIN D 500 MG TAB PO SCH (09:18)
--- NOTE | 2019-02-10 11:18 | DS.PDOC ---
Discharge Summary General Date of Admission Feb 06, 2019 at 17:55 Date of Discharge 02/10/19 Discharge Summary DISCHARGE DIAGNOSIS: Nondisplaced fracture of the left pubic rami and sacrum, s/p mechanical fall SECONDARY DIAGNOSIS: Hyperlipidemia Magnesium deficiency History of osteoporosis PROCEDURES PERFORMED DURING STAY: None. CONSULTANTS: Dr. Smith HOSPITAL COURSE: Patient was admitted to the hospital service and Dr. Smith, orthopedics, was consulted. Recommendations was ambulate as tolerated and physical therapy. Patient worked with physical therapy throughout her stay once they state that she was safe for discharge at advised that she follow up with PT at home. No other adjustments were made with medications. DISCHARGE MEDICATIONS: Please see below. ALLERGIES: Please see below. SUBJECTIVE: Patient [otherwise patient denies chest pain, shortness, breath, nausea, vomiting, fevers, chills] OBJECTIVE: PHYSICAL EXAMINATION: VITAL SIGNS: Please see below. GENERAL: Pleasant sitting up in bed awake alert oriented speaking in complete sentences no acute distress HEENT: Moist mucous membranes no elevation in CVP CARDIOVASCULAR: S1 S2 regular no additional heart sounds appreciated. RESPIRATORY: Clear to auscultation bilaterally. ABDOMINAL: Bowel sounds present abdomen soft and nontender EXTREMITIES: No clubbing, cyanosis, or edema. Normal range of motion in the right leg in all four planes. No tenderness on palpation of the hip or the knee and ankle. Muscle strength 5/5 on the right leg. Left Leg: Unable to assess range of motion due to pain. Tenderness with palpation of the left hip (Improved). No tenderness with palpation of the right knee or ankle. No visual bruising, swelling or skin breakdown noted of both hips. NEUROLOGICAL: Spontaneously moves all 4 extremities cranial 2 through 12 grossly intact no gross focal deficits appreciated PSYCHOLOGICAL: Appropriate LABORATORY DATA, MICROBIOLOGY: Please see below. IMAGING STUDIES: 02/06/2019 Pelvic x-ray: Nondisplaced fracture of the left inferior pubic ramus. Pelvic CT: Nondisplaced fracture of the left sacrum and the inferior pubic rami. DVT prophylaxis ordered: TEDs and sequentials ASSESSMENT AND PLAN: This is a 78 -year-old female with a pertinent past medical history of osteoporosis, currently not on bisphosphate, presenting today for a nondisplaced fracture of the left sacrum and left pubic rami status post mechanical fall. PROBLEMS: Nondisplaced fracture of the left pubic rami and sacrum, s/p mechanical fall -Dr. Smith, orthopedic, consulted -weightbearing as tolerated ambulate with walker -pain control :ibuprofen and Percocet 1-2 tablets for pain control on a pain scale. -Physical therapy (PT) outpatient Hyperlipidemia c/w her simvastatin 5 mg qhs History of osteoporosis, currently not on bisphosphonate -c/w calcium and vitamin D3. No pertinent cardiac history or respiratory history -tolerated all surgeries in the past with no complications Diet -Two-gram sodium diet. DISPOSITION: Medically stable. Discharge home with PT DISCHARGE CONDITION: Improved and Stable FOLLOW UP: 1. Follow-up with PCP in 7-10 days 2. Follow-up with orthopedics group within 3 weeks. ACTIVITY: As prior to admission. DIET: As prior to admission TIME SPENT ON DISCHARGE: 35 minutes Vital Signs/I&Os Vital Signs Date Time Temp Pulse Resp B/P (MAP) Pulse Ox O2 Delivery O2 Flow Rate FiO2 02/10/19 05:57 98.2 87 16 114/60 (78) 96 Room Air I&O- Last 24 Hours up to 6 AM 02/10/19 05:59 Intake Total 1180 ml Balance 1180 ml Laboratory Data Labs 24H Laboratory Tests 2 02/10/19 06:39: Immature Granulocyte % (Auto) 0.4, Neutrophils (%) (Auto) 54.6, Lymphocytes (%) (Auto) 30.4, Monocytes (%) (Auto) 10.6H, Eosinophils (%) (Auto) 3.8H, Basophils (%) (Auto) 0.2, Neutrophils # (Auto) 2.9, Lymphocytes # (Auto) 1.6, Monocytes # (Auto) 0.6, Eosinophils # (Auto) 0.2, Basophils # (Auto) 0.0, Nucleated Red Blood Cells % (auto) 0.0, Anion Gap 6L, Glomerular Filtration Rate > 60.0, Calcium Level 8.9 CBC/BMP Laboratory Tests 02/10/19 06:39 Discharge Medications Scheduled Calcium Carbonate/Vitamin D3 (Calcium 600-Vit D3 200 Tablet) 1 Tab Tab, 2 TAB PO QAM, (Reported) Calcium Carbonate/Vitamin D3 (Calcium 600-Vit D3 200 Tablet) 1 Each Tablet, 1 TAB PO QHS, (Reported) Calcium/Vitamin D (Calcium 500-Vit D3 200 Tablet) 1 Each Tablet, 1,000 MG PO DAILY Multivitamins (Thera M Plus Tablet) 1 Tab Tab, 1 TAB PO DAILY, (Reported) Simvastatin (Simvastatin) 10 Mg Tablet, 5 MG PO QHS, (Reported) Scheduled PRN Aspirin (Aspirin) 325 Mg Tab, 325 MG PO DAILY PRN for PAIN, (Reported) Ibuprofen (Ibuprofen) 600 Mg Tablet, 600 MG PO Q6HP PRN for MODERATE PAIN (PS 5- 7) Magnesium Oxide (Magnesium Oxide) 400 Mg Tablet, 400 MG PO DAILY PRN for CON STIPATION, (Reported) Polyethylene Glycol 3350 (Polyethylene Glycol 3350) 17 Gm Powd.pack, 1 PKT PO DAILYPRN PRN for CONSTIPATION Sennosides/Docusate Sodium (Senna Plus Tablet) 1 Each Tablet, 2 TAB PO BIDP PRN for CONSTIPATION Allergies Coded Allergies: No Known Allergies (Verified , 02/28/18) ATTENDING NOTE I have personally evaluated and examined the patient. Discussed with residents and student regarding plan of care and agree with the above assessment and plan. BASSAM OLIVEIRA DO Feb 10, 2019 11:17 BRIT DARBY MD Feb 10, 2019 18:30
--- NOTE | 2019-02-10 18:28 | DSES ---
DATE OF ADMISSION: 02/06/2019 DATE OF DISCHARGE: 02/10/2019 PRIMARY DISCHARGE DIAGNOSES: 1. Pelvic fracture of the left side, pubic rami fracture. 2. Osteoporosis. 3. Magnesium deficiency. DISCHARGE MEDICATIONS: - calcium with vitamin D one tablet 1000 mg daily - ibuprofen 600 every 6 as needed for pain - oxycodone 5 every 6 as needed for moderate pain - MiraLax one tablet as needed daily - Senokot two tablets as needed twice a day - aspirin 325 daily - calcium with vitamin D two tablets every morning - calcium carbonate one tablet at bedtime - magnesium oxide 400 mg daily - multivitamin one tablet daily - simvastatin 5 mg at bedtime ORTHOPEDIC SURGEON: Dr. Smith. HOSPITAL COURSE: This is an 78-year-old female who has not seen a physician in several years with history of osteoporosis, magnesium deficiency, and dyslipidemia, who presents after a fall on her buttocks while she was placing groceries in her back seat, and the wind blew her car door open, hitting her. Denies any loss of consciousness or head trauma. No lightheadedness, chest pain, pressure, or tightness, dizziness, or headaches prior to the fall. Patient was admitted and found to have a pubic rami fracture, evaluated by Dr. Smith. Recommended activity as tolerated. The patient was working in physical therapy and has been cooperative throughout her entire admission. Her complete blood count (CBC), metabolic panel, liver profile are all within normal limits as well as her coagulation studies. The patient is stable for hospital discharge on 02/10/2019 and is to followup with a new primary care physician within 1 week of hospital discharge. LABORATORY DATA ON HOSPITAL DISCHARGE: White count 11, hemoglobin 12, hematocrit 38, platelet count 212. Sodium 140, potassium 3.7, chloride 105, bicarbonate 28, BUN 13, creatinine 0.7, and glucose 132. AST 22, ALT 27, albumin of 3.2. CT of the pelvis 02/06/2019: Nondisplaced fracture of the left sacrum and inferior pubic ramus. TIME SPENT ON DISCHARGE: 30 minutes. MTDD
== END 2019-02-10 12:20 | disposition home or self-care (01) | DRG 552 ==
LOC: EDBD 12:57 → M ED 12:57 → M ED INP 17:55 → M MS5PR 18:30
PROVIDERS: ADMIT Internal Medicine; ATTEND Student in an Organized Health Care Education/Training Program
DX: S32.19XA Other fracture of sacrum, initial encounter for closed fracture (principal); S32.592A Other specified fracture of left pubis, initial encounter for closed fracture; E83.42 Hypomagnesemia; Z79.899 Other long term (current) drug therapy; E78.5 Hyperlipidemia, unspecified; W18.30XA Fall on same level, unspecified, initial encounter; Y92.009 Unspecified place in unspecified non-institutional (private) residence as the place of occurrence of the external cause; M81.0 Age-related osteoporosis without current pathological fracture; Z85.3 Personal history of malignant neoplasm of breast; Z90.12 Acquired absence of left breast and nipple; Z85.828 Personal history of other malignant neoplasm of skin; Z79.82 Long term (current) use of aspirin; Z66 Do not resuscitate

== ENCOUNTER 2021-04-02 23:10 | Observation (INO) | payer MEDICARE, BC ==
[~2021-04-02] VITALS: Ht 157.5 cm; Wt 45.4 kg
[~2021-04-02 23:10] MED LIST changes: +CALC-211 PO; +CALC-212 PO; -CALC600T3 PO; +CALC600T57 PO; -CALC600T7 PO; +CALC600T86 PO; +CALCD50TA PO; -CALCTAB7 PO; +IBUP-1022 PO; +MAGN400T33 PO; +OXYCO5TA PO; +POLY17PO18 PO; +SENN-52 PO; +SIMV10TA21 PO
[2021-04-03] MEDS ORDERED: NS 500 ML IV ONE (02:15)
[2021-04-03] MEDS ORDERED: MORPHINE 2 MG/ML 1ML VIAL (J2270) IV PRN (02:15)
[2021-04-03 03:32] LABS: BASO % 0.2 % (0.0-1.0); HEMATOCRIT 41.6 % (36.0-47.0); HEMOGLOBIN 13.6 g/dl (12.0-15.5); LYMPH # 0.7 10^3/uL (1.5-5.0); LYMPH % 5.7 % (24.0-44.0); MEAN CORPUSCULAR HEMOGLOBIN 28.5 pg (27.0-33.0); MEAN CORPUSCULAR HGB CONC 32.7 g/dl (32.0-36.5); MONO # 0.4 10^3/uL (0.0-0.8); MONO % 3.5 % (2.0-8.0); NEUTROPHILS # 10.5 10^3/uL (1.5-8.5); NEUTROPHILS % 90.2 % (36.0-66.0); PLATELET COUNT, AUTOMATED 287 10^3/uL (150-450); RED BLOOD COUNT 4.78 10^6/uL (4.00-5.40); WHITE BLOOD COUNT 11.6 10^3/uL (4.0-10.0)
[2021-04-03 04:04] LABS: ALBUMIN 3.6 GM/DL (3.2-5.2); ALT/SGPT 19 U/L (12-78); BILIRUBIN,DIRECT 0.2 MG/DL (0.0-0.2); BILIRUBIN,TOTAL 0.7 MG/DL (0.2-1.0); BLOOD UREA NITROGEN 10 MG/DL (7-18); CARBON DIOXIDE LEVEL 24 MEQ/L (21-32); CHLORIDE LEVEL 109 MEQ/L (98-107); CREATININE FOR GFR 0.62 MG/DL (0.55-1.30); GLOMERULAR FILTRATION RATE > 60.0 (>32); GLUCOSE, FASTING 133 MG/DL (70-100); LIPASE 179 U/L (73-393); POTASSIUM SERUM 3.9 MEQ/L (3.5-5.1); SODIUM LEVEL 139 MEQ/L (136-145); TOTAL PROTEIN 7.1 GM/DL (6.4-8.2)
[2021-04-03 04:18] LABS: CK-MB VALUE MASS 3.8 NG/ML (<3.6); MB/CK RELATIVE INDEX 1.89 (< OR =4)
[2021-04-03] MEDS ORDERED: ISOVUE-370 76% 100ML VIAL As Ordered ONE (04:22)
[2021-04-03] MEDS ORDERED: CEPH500C PO (05:45)
[2021-04-03] MEDS ORDERED: HOME MED LIST COMPLETE! XX SCH (05:50)
[2021-04-03] MEDS ORDERED: ACETAMINOPHEN TAB 650MG DOSE (2X325MG) PO PRN (06:25)
[2021-04-03] MEDS ORDERED: LIDOCAINE 5% (LIDODERM) PATCH TD ONE (07:00)
[2021-04-03] MEDS: CEPHALEXIN 500 MG CAP PO SCH ×2 (09:33→19:59)
[2021-04-03] MEDS: CALCIUM/VITAMIN D 500 MG TAB PO SCH (09:33)
[2021-04-03 10:15] VITALS: BP 142/80
[2021-04-03 10:18] LABS: TOTAL 25(OH) VITAMIN D 28.7 NG/ML (30.0-100.0)
[2021-04-03 14:00] VITALS: BP 118/54
[2021-04-03] MEDS: ENOXAPARIN 40MG/0.4ML SYRINGE (J1650 PER 10MG) SC SCH (14:35)
[2021-04-03] MEDS: KETOROLAC 30 MG/ML 1ML VIAL IV PRN ×2 (14:35→23:08)
[2021-04-03] MEDS ORDERED: **NOTE PATIENT COMMENT** MISC XX SCH ×2 (17:00→19:00)
[2021-04-03 22:00] VITALS: BP 118/55
[2021-04-04 06:00] VITALS: BP 125/69
[2021-04-04 06:05] LABS: HEMOGLOBIN 12.4 g/dl (12.0-15.5); MEAN CORPUSCULAR HEMOGLOBIN 28.8 pg (27.0-33.0); MEAN CORPUSCULAR HGB CONC 32.6 g/dl (32.0-36.5); MEAN CORPUSCULAR VOLUME 88.2 fl (80.0-96.0); PLATELET COUNT, AUTOMATED 241 10^3/uL (150-450); RED BLOOD COUNT 4.31 10^6/uL (4.00-5.40); WHITE BLOOD COUNT 5.4 10^3/uL (4.0-10.0)
[2021-04-04 06:44] LABS: BLOOD UREA NITROGEN 12 MG/DL (7-18); CALCIUM LEVEL 8.4 MG/DL (8.8-10.2); CARBON DIOXIDE LEVEL 26 MEQ/L (21-32); CHLORIDE LEVEL 112 MEQ/L (98-107); GLOMERULAR FILTRATION RATE > 60.0 (>32); GLUCOSE, FASTING 92 MG/DL (70-100); MAGNESIUM LEVEL 2.2 MG/DL (1.8-2.4); PHOSPHORUS LEVEL 2.9 MG/DL (2.5-4.9); POTASSIUM SERUM 3.6 MEQ/L (3.5-5.1); SODIUM LEVEL 143 MEQ/L (136-145)
[2021-04-04] MEDS: CALCIUM/VITAMIN D 500 MG TAB PO SCH (10:28)
[2021-04-04] MEDS: ENOXAPARIN 40MG/0.4ML SYRINGE (J1650 PER 10MG) SC SCH (10:28)
[2021-04-04] MEDS: CEPHALEXIN 500 MG CAP PO SCH (10:28)
[2021-04-04 14:00] VITALS: BP 123/62
[2021-04-04] MEDS ORDERED: CEPH500C PO (15:34)
== END 2021-04-04 19:48 | disposition other institution (70) ==
LOC: M ED 23:10 → M ED INP 23:11 → ENRESERV 04-03 09:00 → M MSPAV 04-03 10:06
PROVIDERS: ADMIT Family Medicine; ATTEND Family Medicine
DX: S22.42XA Multiple fractures of ribs, left side, initial encounter for closed fracture (principal); W19.XXXA Unspecified fall, initial encounter; Y92.003 Bedroom of unspecified non-institutional (private) residence as the place of occurrence of the external cause; Y93.9 Activity, unspecified; Y99.9 Unspecified external cause status; M81.0 Age-related osteoporosis without current pathological fracture; N39.0 Urinary tract infection, site not specified; E78.5 Hyperlipidemia, unspecified; Z79.899 Other long term (current) drug therapy

== ENCOUNTER 2021-04-04 14:21 | Inpatient (IN) | payer MEDICARE, BC ==
[~2021-04-04] VITALS: Ht 157.5 cm; Wt 42.5 kg
[~2021-04-04 14:21] MED LIST changes: +CEPH500C PO
[2021-04-04] MEDS ORDERED: CEPH500C PO (15:34)
[2021-04-17 06:00] VITALS: BP 122/60
[2021-04-17] MEDS ORDERED: AMLO25TA PO (08:12)
[2021-04-17] MEDS ORDERED: LEXA5TAB13 PO (08:12)
[2021-04-17] MEDS ORDERED: VITAD1000T PO (08:12)
[2021-04-17 08:32] VITALS: BP 122/60
== END 2021-04-17 12:55 | disposition home health service (06) | DRG 560 ==
LOC: M PM&R 19:50
PROVIDERS: ADMIT Physical Medicine & Rehabilitation; ATTEND Physical Medicine & Rehabilitation
DX: S22.42XD Multiple fractures of ribs, left side, subsequent encounter for fracture with routine healing (principal); N39.0 Urinary tract infection, site not specified; W18.30XD Fall on same level, unspecified, subsequent encounter; Y92.003 Bedroom of unspecified non-institutional (private) residence as the place of occurrence of the external cause; Y93.9 Activity, unspecified; Y99.9 Unspecified external cause status; M81.0 Age-related osteoporosis without current pathological fracture; E78.5 Hyperlipidemia, unspecified; Z79.899 Other long term (current) drug therapy; I10 Essential (primary) hypertension

== ENCOUNTER 2021-09-11 22:43 | Emergency (ER) | payer MEDICARE, BC ==
[~2021-09-11] VITALS: Ht 160 cm; Wt 48.2 kg
[~2021-09-11 22:43] MED LIST changes: +AMLO25TA PO; +LEXA5TAB13 PO; +VITAD1000T PO
[2021-09-12 00:07] LABS: BLOOD UREA NITROGEN 19 MG/DL (7-18); CALCIUM LEVEL 9.5 MG/DL (8.8-10.2); CARBON DIOXIDE LEVEL 30 MEQ/L (21-32); CHLORIDE LEVEL 104 MEQ/L (98-107); CREATININE FOR GFR 0.66 MG/DL (0.55-1.30); GLOMERULAR FILTRATION RATE > 60.0 (>32); GLUCOSE, FASTING 122 MG/DL (70-100); POTASSIUM SERUM 4.1 MEQ/L (3.5-5.1); SODIUM LEVEL 141 MEQ/L (136-145)
[2021-09-12 00:15] LABS: BASO % 0.3 % (0.0-1.0); EOS # 0.1 10^3/uL (0.0-0.5); EOS % 1.4 % (0.0-3.0); HEMATOCRIT 40.8 % (36.0-47.0); HEMOGLOBIN 13.1 g/dl (12.0-15.5); LYMPH # 1.6 10^3/uL (1.5-5.0); LYMPH % 21.3 % (24.0-44.0); MEAN CORPUSCULAR HGB CONC 32.1 g/dl (32.0-36.5); MEAN CORPUSCULAR VOLUME 90.3 fl (80.0-96.0); MONO # 0.8 10^3/uL (0.0-0.8); MONO % 10.4 % (2.0-8.0); NEUTROPHILS # 4.8 10^3/uL (1.5-8.5); NEUTROPHILS % 65.6 % (36.0-66.0); PLATELET COUNT, AUTOMATED 293 10^3/uL (150-450); RED BLOOD COUNT 4.52 10^6/uL (4.00-5.40); WHITE BLOOD COUNT 7.3 10^3/uL (4.0-10.0)
[2021-09-12 05:15] VITALS: BP 102/54
== END 2021-09-12 08:15 | disposition home or self-care (01) ==
LOC: EDBD 22:43 → M ED 22:43
DX: R42 Dizziness and giddiness (principal); T43.215A Adverse effect of selective serotonin and norepinephrine reuptake inhibitors, initial encounter; Z79.899 Other long term (current) drug therapy

== ENCOUNTER → 2021-11-22 | Outpatient (REF) | payer MEDICARE, BC, OTHER ==
[~2021-11-22] MED LIST changes: +FISH10005 PO; -FISH7.5C PO
[2021-11-22 19:08] LABS: APPEARANCE, URINE MANUAL CLOUDY (CLEAR); COLOR, URINE MANUAL YELLOW (YELLOW)
[2021-11-22 19:09] LABS: BILIRUBIN, URINE MANUAL NEGATIVE (NEGATIVE); BLOOD URINE MANUAL POSITIVE (NEGATIVE); GLUCOSE, URINE (UA) MANUAL NEGATIVE (NEGATIVE); KETONE, URINE MANUAL NEGATIVE (NEGATIVE); LEUKOCYTE ESTERASE, URINE MAN POSITIVE (NEGATIVE); NITRITE, URINE MANUAL NEGATIVE (NEGATIVE); PROTEIN, URINE MANUAL TRACE mg/dL (NEGATIVE); UROBILINOGEN, URINE MANUAL NORMAL (NORMAL)
[2021-11-22 19:24] LABS: BACTERIA, URINE LARGE AMOUNT; HYALINE CAST, URINE NONE SEEN /lpf (0-1); RBC, URINE NONE SEEN /hpf (0-3); SQUAMOUS EPITHELIAL CELL URINE SMALL AMOUNT /hpf (SMALL AMT); WBC, URINE 20-30 /hpf (0-3)
== END ==
LOC: M SMT 16:54
PROVIDERS: ATTEND Physician Assistant
DX: N30.90 Cystitis, unspecified without hematuria (principal)

== ENCOUNTER → 2022-04-09 | Outpatient (REF) | payer MEDICARE, BC, OTHER | PROVIDERS: ATTEND Physician Assistant | DX: R05.9 Cough, unspecified (principal) ==

== ENCOUNTER → 2022-08-31 | Outpatient (REF) | payer MEDICARE, BC, OTHER ==
[2022-08-31 09:32] LABS: HEMATOCRIT 41.6 % (36.0-47.0); HEMOGLOBIN 13.7 g/dl (12.0-15.5); MEAN CORPUSCULAR HEMOGLOBIN 29.3 pg (27.0-33.0); MEAN CORPUSCULAR HGB CONC 32.9 g/dl (32.0-36.5); MEAN CORPUSCULAR VOLUME 88.9 fl (80.0-96.0); PLATELET COUNT, AUTOMATED 332 10^3/uL (150-450); RED BLOOD COUNT 4.68 10^6/uL (4.00-5.40); WHITE BLOOD COUNT 5.6 10^3/uL (4.0-10.0)
[2022-08-31 10:00] LABS: BLOOD UREA NITROGEN 17 MG/DL (9-23); CALCIUM LEVEL 9.3 MG/DL (8.3-10.6); CARBON DIOXIDE LEVEL 27 MMOL/L (20-31); CHLORIDE LEVEL 105 MMOL/L (98-107); CREATININE FOR GFR 0.56 MG/DL (0.55-1.30); GLOMERULAR FILTRATION RATE > 60.0 (>32); GLUCOSE, FASTING 99 MG/DL (74-106); POTASSIUM SERUM 3.9 MMOL/L (3.5-5.1); SODIUM LEVEL 141 MMOL/L (136-145)
== END ==
PROVIDERS: ATTEND Physician Assistant
DX: Z01.818 Encounter for other preprocedural examination (principal)

== ENCOUNTER 2022-09-18 12:14 | Emergency (ER) | payer MEDICARE, BC, OTHER ==
[~2022-09-18] VITALS: Ht 152.4 cm; Wt 42.7 kg
[2022-09-18 14:18] VITALS: BP 127/67; TEMP 98.8; O2SAT 96
== END 2022-09-18 15:36 | disposition home or self-care (01) ==
LOC: EDBD 12:14 → M ED 12:14
DX: T17.920A Food in respiratory tract, part unspecified causing asphyxiation, initial encounter (principal); Z79.810 Long term (current) use of selective estrogen receptor modulators (SERMs); Z79.899 Other long term (current) drug therapy

== ENCOUNTER → 2022-09-27 | Outpatient (REF) | payer MEDICARE, BC, OTHER | PROVIDERS: ATTEND Internal Medicine | DX: N39.0 Urinary tract infection, site not specified (principal) ==

== ENCOUNTER → 2022-10-09 | Outpatient (REF) | payer MEDICARE, BC, OTHER | PROVIDERS: ATTEND Internal Medicine | DX: M85.831 Other specified disorders of bone density and structure, right forearm (principal) ==

== ENCOUNTER → 2022-10-22 | Outpatient (REF) | PROVIDERS: ATTEND Internal Medicine | DX: M25.511 Pain in right shoulder (principal) ==

== ENCOUNTER → 2022-10-31 | Outpatient (CLI) | payer MEDICARE, BC, OTHER | LOC: M RAD 13:15 | PROVIDERS: ATTEND Internal Medicine | DX: M54.50 Low back pain, unspecified (principal) ==

== ENCOUNTER → 2023-02-20 | Outpatient (REF) | payer MEDICARE, BC, OTHER | PROVIDERS: ATTEND Internal Medicine | DX: R05.9 Cough, unspecified (principal) ==

== ENCOUNTER → 2023-02-20 | Outpatient (REF) | payer MEDICARE, BC, OTHER | PROVIDERS: ATTEND Physician Assistant | DX: R05.9 Cough, unspecified (principal) ==

== ENCOUNTER → 2023-04-08 | Outpatient (REF) | payer MEDICARE, BC, OTHER | PROVIDERS: ATTEND Internal Medicine | DX: M17.11 Unilateral primary osteoarthritis, right knee (principal) ==

== ENCOUNTER → 2023-04-24 | Outpatient (REF) | payer MEDICARE, BC, OTHER | PROVIDERS: ATTEND Physician Assistant | DX: R05.9 Cough, unspecified (principal) ==

== ENCOUNTER → 2023-06-01 | Outpatient (REF) | payer MEDICARE, BC, OTHER | PROVIDERS: ATTEND Internal Medicine | DX: R19.7 Diarrhea, unspecified (principal); Z53.8 Procedure and treatment not carried out for other reasons ==

== ENCOUNTER → 2023-06-03 | Outpatient (REF) | payer MEDICARE, BC, OTHER | PROVIDERS: ATTEND Physician Assistant | DX: R19.7 Diarrhea, unspecified (principal); Z53.8 Procedure and treatment not carried out for other reasons ==